=== PATIENT | female | born 1935 | race Caucasian/White ===

== ENCOUNTER 2017-01-12 20:07 | Inpatient (IN) | payer OTHER, MEDICARE ==
[~2017-01-12] VITALS: Ht 157.5 cm; Wt 67.1 kg
--- NOTE | 2017-01-12 20:28 | NUR ---
RECEIVED 81 YO FEMALE WITH SON REPORTS WORSENING CONFUSION X FEW DAYS. PT REPORTS BILATERAL LOWER EXTREMITY SWELLING AND FEELING OFF CENTER.
[2017-01-12] MEDS ORDERED: ATORVASTATIN CA20 M1 PO (20:32)
[2017-01-12] MEDS ORDERED: CARVEDILOL6.25 M1 PO (20:32)
[2017-01-12] MEDS ORDERED: AMLODIPINE BESYL5 M1 PO (20:33)
[2017-01-12] MEDS ORDERED: LOSARTAN POTASS50 M1 PO (20:34)
[2017-01-12] MEDS ORDERED: ASPIRIN EC81 M1 PO (20:35)
--- NOTE | 2017-01-12 20:38 | NUR ---
PT CHANGED INTO HOSPITAL GOWN. STATES HAS OCCASIONAL "ISSUES WITH INCONTINANCE" PT STATES SHE HAS BEEN ON HER FEET MORE THAN USUAL THE LAST FEW DAYS AND IS WONDERING IF THAT WORSENED THE ANKLE/FEET SWELLING. IS ALERT AND CONVERSIVE. C/O FATIGUE. DENIES SOB/CHEST PAIN DR LUNDY AT BEDSIDE TO EVAL PT.
--- NOTE | 2017-01-12 20:53 | NUR ---
REGULAR HR ON AUSCULTAION. LUNGS SOUNDS CLEAR. PT STATES URINARY FREQUENCY IS AT BASELINE. PT ALERT AND CONVERSIVE, AND ORIENTED
--- NOTE | 2017-01-12 20:57 | ED AMS/SEIZURE/WEAK/DIZZY ---
History of Present Illness General Chief Complaint: General Adult Stated Complaint: ALERT MENTAL STATUS PER FAMILY AND BACK PAIN Source: patient, SON Exam Limitations: no limitations Vital Signs & Intake/Output Vital Signs & Intake/Output Vital Signs Date Time Temp Pulse Resp B/P Pulse O2 O2 Flow FiO2 Ox Delivery Rate 01/13 0130 98.2 82 20 140/84 97 Room Air 01/13 0015 99.2 80 18 136/69 96 Room Air 01/121 96.8 75 18 139/74 96 Room Air 01/12 2025 97.8 75 20 126/76 97 Room Air ED Intake and Output 01/13 0000 01/12 1200 Intake Total 0 Output Total Balance 0 Intake, Oral 0 Patient 148 lb Weight Allergies Coded Allergies: Penicillins (RASH 01/12/17) Reconcile Medications Amlodipine Besylate 5 MG TABLET 0.5 TAB PO DAILY HEART/BP (Reported) Aspirin (Ecotrin*) 81 MG TABLET.DR 81 MG PO DAILY HEART/BLOOD (Reported) Atorvastatin Calcium 20 MG TABLET 1 TAB PO DAILY CHOLESTEROL (Reported) Carvedilol 6.25 MG TABLET 1 TAB PO BID HEART/BP (Reported) Losartan Potassium 50 MG TABLET 1 TAB PO DAILY HEART/BP (Reported) Triage Note: RECEIVED 81 YO FEMALE WITH SON REPORTS WORSENING CONFUSION X FEW DAYS. PT REPORTS BILATERAL LOWER EXTREMITY SWELLING AND FEELING OFF CENTER. Triage Nurses Notes Reviewed? yes HPI: Patient presents for evaluation of feeling lethargic and somewhat tired over the past few days. Patient states that she also had a rather sudden onset of bilateral leg swelling today. She is also complaining of right hip and flank pain is the result of trying to pull a heavy plastic storage box yesterday. The pain gets worse with movement and she states she has to walk stooped over due to the pain. Her son states that she doesn't seem to be acting her usual self stating that the FBI is trying to break into her home. He also states she called the police today about stolen silverware (a silverware is in its usual place however. Patient denies any associated fever, cold symptoms, chest pain, dyspnea, abdominal pain, dysuria, vomiting or diarrhea. She does have chronic urinary frequency. Past History Travel History Traveled to [place] past 21 day No Medical History Any Pertinent Medical History? none Neurological: NONE EENT: NONE Cardiovascular: hypertension, hyperlipidemia Respiratory: NONE Gastrointestinal: NONE Hepatic: NONE Renal: NONE Musculoskeletal: NONE Psychiatric: NONE Endocrine: NONE Blood Disorders: NONE Cancer(s): NONE Surgical History Surgical History: non-contributory Psychosocial History What is your primary language [place] Tobacco Use: Never used Family History Hx Contributory? No Review of Systems Review of Systems Constitutional: Reports: no symptoms. EENTM: Reports: no symptoms. Respiratory: Reports: no symptoms. Cardiovascular: Reports: no symptoms. GI: Reports: no symptoms. Genitourinary: Reports: no symptoms. Musculoskeletal: Reports: no symptoms. Skin: Reports: no symptoms. Neurological/Psychological: Reports: confusion. Hematologic/Endocrine: Reports: no symptoms. Immunologic/Allergic: Reports: no symptoms. All Other Systems: Reviewed and Negative Physical Exam Physical Exam General Appearance: SEE BELOW Comments: Gen.: Well-nourished, well-developed, no acute respiratory distress. Head: Normocephalic, atraumatic. Eyes: Normal inspection bilaterally Ears: Normal inspection bilaterally Nose: Normal inspection Throat/mouth : Moist mucosa Neck: Supple, full range of motion, no goiter Heart: Regular rate and rhythm, no murmurs rubs or gallops Lungs: Clear to auscultation bilaterally with normal air entry Chest: Nontender Back: Normal range of motion, nontender, patient has right flank tenderness with range of motion however Abdomen: Soft, nontender, nondistended, normal bowel sounds Extremities: Normal range of motion grossly, equal radial pulses, bilateral 1-2+ pitting lower extremity edema, calves nontender no signs of cellulitis Neurologic: Cranial nerves grossly intact, speech is clear Skin: warm and dry Psychiatric: Calm, cooperative, no apparent delusions or hallucinations Core Measures ACS in differential dx? No CVA/TIA Diagnosis: No Severe Sepsis Present: No Septic Shock Present: No Progress Differential Diagnosis: ALTERED MENTAL STATUS: oCCULT INFECTION, cva, PSYCHIATRIC DISORDER bACK PAIN: mUSCLE STRAIN, RENAL COLIC, SHINGLES lEG EDEMA: rIGHT-SIDED HEART FAILURE, EXCESSIVE SALT INTAKE, VENOUS DISEASE Plan of Care: Orders Procedure Date/time Status Heart Healthy Diet 01/13 B Active SODIUM 01/13 1200 Active THYROID STIMULATING HORMONE 01/13 0600 Active HEPATIC FUNCTION PANEL 01/13 06 Active FREE T4 01/13 0600 Active CORTISOL AM 01/13 06 Active BASIC ELECTROLYTES PLUS BUN&CR 01/13 06 Active Pathway - chart 01/13 0355 Active Pathway - chart 01/13 0350 Active House Staff 01/13 0350 Active Vital Signs 01/13 0236 Active Teach/Educate 01/13 023 Active Pain Treatment and Response 01/14 236 Active Nutritional Intake, Monitor 01/14 236 Active Isolation 01/13 023 Active Intake & Output 01/13 023 Active Patient Care Conference 01/13 023 Active Activity/Ambulation 01/13 023 Active Patient Data 01/13 0020 Active Lab Add-on Test 01/13 UNK Active ECHOCARDIOGRAM 01/13 UNK Active Misc Message 01/12 233 Active ED Holding Orders 01/13 2336 Active Admit to inpatient 01/13 2336 Active Vital Signs 01/13 2336 Active Code Status 01/13 2336 Active Add-on Test (ER Only) 01/12 2333 Active URINE OSMOLALITY 01/13 2148 Complete URINE LYTES, SPOT 01/13 2148 Complete VIT D 25 HYDROXY 01/12 2135 Active SERUM OSMOLALITY 01/12 2135 Active FOLIC ACID 01/12 2135 Active B-TYPE NATRIURETIC PEP (BNP) 01/12 2135 Active VITAMIN B12 01/12 2135 Active Saline Lock 01/12 2057 Active CULTURE,URINE 01/12 2057 Active URINE DRUG SCREEN FOR ER ONLY 01/12 2057 Complete URINALYSIS 01/12 2057 Complete THYROID STIMULATING HORMONE 01/12 2057 Active TROPONIN LEVEL 01/12 2057 Active T3 UPTAKE (THYROXINE BIND CAP) 01/12 2057 Active THYROXINE 01/12 2057 Active ETHANOL 01/12 2057 Active COMPREHENSIVE METABOLIC PANEL 01/12 2057 Active CBC WITHOUT DIFFERENTIAL 01/12 2057 Complete EKG 01/12 2057 Active Intake & Output 01/13 2040 Active Current Medications Sig/Sivakumar Start time Last Medication Dose Stop Time Status Admin Atorvastatin Calcium 20 MG 1700 01/13 1700 AC (Lipitor) Amlodipine Besylate 2.5 MG DAILY 01/13 1000 AC (Norvasc) Aspirin Buffered 81 MG DAILY 01/13 1000 AC (Ecotrin) Carvedilol 6.25 MG BID 01/13 1000 AC (Coreg) Enoxaparin Sodium 40 MG DAILY 01/13 1000 AC (Lovenox) Losartan Potassium 50 MG DAILY 01/13 1000 CAN (Cozaar) Acetaminophen 325 MG Q6P PRN 01/13 0400 AC (Tylenol) Acetaminophen/ 1 TAB Q6P PRN 04/01 0400 AC Hydrocodone Bitart (Vicodin) Tramadol HCl 25 MG Q6 PRN 01/14 400 AC (Ultram) Laboratory Tests 01/12/172147: Urine Color YEL, Urine Clarity CLEAR, Urine pH 6.0, Ur Specific [place] 1.015, Urine Protein NEG, Urine Ketones 15 H, Urine Nitrite NEG, Urine Bilirubin NEG, Urine Urobilinogen 0.2, Ur Leukocyte Esterase TRACE H, Ur Microscopic SEDIMENT EXAMINED, Urine WBC RARE, Ur Epithelial Cells FEW, Urine Bacteria RARE H, Urine Hemoglobin NEG, Urine Glucose NEG 01/12/172147: Urine Opiates Screen < 100.00, Methadone Screen < 40, Barbiturate Screen < 60, Ur Phencyclidine Scrn < 6.00, Amphetamines Screen < 100, U Benzodiazepines Scrn < 85, Urine Cocaine Screen < 50, Urine Cannabis Screen < 5.00, Urine Osmolality 636, Ur Random Creatinine 111.7, Ur Random Sodium 11 L, Ur Random Potassium 70.5, Fraction Sodium Excret 0.0 01/12/172134: Anion Gap 4 L, Estimated GFR > 60, BUN/Creatinine Ratio 30.0 H, Glucose 103 H , Serum Osmolality 276 L, Calcium 9.4, Total Bilirubin 0.7, AST 86 H, ALT 60 H, Alkaline Phosphatase 82, Troponin I < 0.01, Xgl-S-Rlxcbldsdpn Pept 164 H, Total Protein 6.2 L, Albumin 3.5, Globulin 2.7, Albumin/Globulin Ratio 1.3, Vitamin B12 703, 25-OH Vitamin D Total Pending, Folate > 20.0 H, TSH 2.980, Thyroxine (T4) 10.3, Thyroxine Binding Indx 42.0 H, CBC w Diff NO MAN DIFF REQ, RBC 4.73, MCV 84.5, MCH 28.1, RDW 13.3, MPV 8.4, Gran % 71.5, Lymphocytes % 18.6 L, Monocytes % 8.3, Eosinophils % 1.4, Basophils % 0.2, Absolute Granulocytes 7.1 H, Absolute Lymphocytes 1.9, Absolute Monocytes 0.8 H, Absolute Eosinophils 0.1, Absolute Basophils 0, PUBS MCHC 33.3, Serum Alcohol < 10.0 Microbiology 01/13 2148 URINE ROUT: Urine Culture - RECD Diagnostic Imaging: Discussed w/RAD: CT Scan. Radiology Impression: PATIENT: ZEESHAN GANDHI PRESENT AGE: 81 PATIENT ACCOUNT NO: [id number] : 34 LOCATION: [facility] ORDERING PHYSICIAN: NEVILLE LUNDY MD SERVICE DATE: 01/12/17 EXAM TYPE: CAT - CT HEAD WO IV CONTRAST EXAMINATION: CT HEAD WITHOUT CONTRAST CLINICAL INFORMATION: Altered mental status CVA COMPARISON: None TECHNIQUE: Contiguous axial imaging was performed from the skull base to vertex without intravenous administration of contrast. DLP: 529 mGy-cm FINDINGS: There is no evidence of acute intracranial hemorrhage or territorial infarction. No abnormal mass effect or midline shift is seen. Dempsey to white matter differentiation is well preserved. No extra-axial fluid collections are identified. The ventricles are normal in size. . There is prominent local extra-axial fluid in the left high parietal region likely related to normal variation without clinical significance. There is mild periventricular white matter changes compatible with small vessel disease. The osseous structures and soft tissues are normal. The mastoid air cells and visualized portions of the paranasal sinuses are well aerated. IMPRESSION: No acute intracranial pathology. No evidence for acute infarct. Chronic periventricular small vessel disease. DICTATED BY: LEEANNE PAINTER MD DATE/TIME DICTATED:01/12/172120 INSTRUMENT MAINTENANCE SUPERVISOR:RONEL DATE/TIME TRANSCRIBED:01/12/172120 CONFIDENTIAL, DO NOT COPY WITHOUT APPROPRIATE AUTHORIZATION. <Electronically signed in Other Vendor System> SIGNED BY: LEEANNE PAINTER MD 01/12/172132 CXR Impression: PATIENT: ZEESHAN GANDHI PRESENT AGE: 81 PATIENT ACCOUNT NO: [id number] : 34 LOCATION: [facility] ORDERING PHYSICIAN: NEVILLE LUNDY MD SERVICE DATE: 01/12/17 EXAM TYPE: RAD - XRY-PORTABLE CHEST XRAY EXAMINATION: CHEST 1 VIEW CLINICAL INFORMATION: Altered mental status. Swelling. COMPARISON: None. TECHNIQUE: An AP view of the chest is provided. FINDINGS: The cardiac silhouette is not enlarged. The mediastinal and hilar contours are unremarkable. There are neither pleural effusions nor pneumothoraces. There are no consolidations. The osseous structures are unremarkable. IMPRESSION: No evidence for acute disease. DICTATED BY: LEEANNE BARRIOS MD DATE/TIME DICTATED:01/12/172128 INSTRUMENT MAINTENANCE SUPERVISOR:RONEL DATE/TIME TRANSCRIBED:01/12/172128 CONFIDENTIAL, DO NOT COPY WITHOUT APPROPRIATE AUTHORIZATION. <Electronically signed in Other Vendor System> SIGNED BY: LEEANNE BARRIOS MD 01/12/172132 Initial ED EKG: NSR, rate (72), J point elevation in v2. poor r wave progression. Prior EKG: unchanged (no sig changes) Departure Departure Disposition: STILL A PATIENT Condition: Stable Clinical Impression Primary Impression: Hyponatremia Secondary Impressions: Altered mental status Qualifiers: Altered mental status type: unspecified Qualified Code: R41.82 - Altered mental status, unspecified Ketonuria Referrals: DAMEON GARCIA,SHIRA Aviles (PCP/Family) Departure Forms: Customer Survey General Discharge Information Admission Note Spoke With: SHILPA MOELLER MD Documentation of Exam: Documentation of any treatments & extenuating circumstances including Concerns Regarding Discharge (functional status, medication knowledge or non-compliance, living conditions, etc.) that warrant an admission rather than observation: Patient is currently experiencing altered mental status and the presence of hyponatremia and ketonuria. According to the family the patient has been experiencing paranoid delusions. I do not feel she is a good candidate for outpatient management of her hyponatremia and ketonuria under the circumstances. She lives alone I would have no assistance with ADLs. Also given her paranoid delusions I feel it is unlikely she would comply with outpatient treatment. She would likely return in worse clinical condition. Her hyponatremia places her at risk of tremors, weakness, seizures and altered mental status. She now requires treatment with normal saline and close monitoring of sodium level. Investigation into the reason for her hyponatremia should also be performed. Neurology and psychiatry consultations should be considered given her altered mental status and history of paranoid delusions. Given her age and medical comorbidities I feel her treatment and recovery will be somewhat prolonged and potentially complicated. I feel she will require a multiple day hospitalization.
--- NOTE | 2017-01-12 21:09 | NUR ---
PER SON, PT HAS BEEN EXPERIENCING EPISODES OF PARANOIA FOR THE LAST FEW DAYS. "SOMEBODY IS COMING INTO THE HOUSE AND STEALING MY SILVER" "THE FBI IS TAPPING MY PHONE" PT TORE PHONE OFF WALL. WAS AGREEABLE TO COME TO ED WITH SON TO GET CHECKED OUT, ON WAY TO ED SAID "WHAT IF THE FBI GOES INTO THE HOUSE WHILE I'M AT THE HOSPITAL" DR LUNDY MADE AWARE
--- NOTE | 2017-01-12 21:33 | CT SCAN REPORT ---
EXAMINATION: CT HEAD WITHOUT CONTRAST CLINICAL INFORMATION: Altered mental status CVA COMPARISON: None TECHNIQUE: Contiguous axial imaging was performed from the skull base to vertex without intravenous administration of contrast. DLP: 529 mGy-cm FINDINGS: There is no evidence of acute intracranial hemorrhage or territorial infarction. No abnormal mass effect or midline shift is seen. Dempsey to white matter differentiation is well preserved. No extra-axial fluid collections are identified. The ventricles are normal in size. . There is prominent local extra-axial fluid in the left high parietal region likely related to normal variation without clinical significance. There is mild periventricular white matter changes compatible with small vessel disease. The osseous structures and soft tissues are normal. The mastoid air cells and visualized portions of the paranasal sinuses are well aerated. IMPRESSION: No acute intracranial pathology. No evidence for acute infarct. Chronic periventricular small vessel disease.
--- NOTE | 2017-01-12 21:33 | RADIOLOGY REPORT ---
EXAMINATION: CHEST 1 VIEW CLINICAL INFORMATION: Altered mental status. Swelling. COMPARISON: None. TECHNIQUE: An AP view of the chest is provided. FINDINGS: The cardiac silhouette is not enlarged. The mediastinal and hilar contours are unremarkable. There are neither pleural effusions nor pneumothoraces. There are no consolidations. The osseous structures are unremarkable. IMPRESSION: No evidence for acute disease.
--- NOTE | 2017-01-12 21:41 | NUR ---
LABS SENT (BLUE,SST,LAV,MANCUSO)
[2017-01-12 21:44] LABS: ABSOLUTE BASOPHIL COUNT 0 /CUMM (0.0-0.2); ABSOLUTE EOSINOPHIL COUNT 0.1 /CUMM (0.0-0.7); ABSOLUTE GRANULOCYTE CT 7.1 /CUMM (1.4-6.5); ABSOLUTE LYMPH COUNT 1.9 /CUMM (1.2-3.4); ABSOLUTE MONOCYTE COUNT 0.8 /CUMM (0.10-0.60); BASOPHIL % 0.2 % (0.0-2.0); EOSINOPHIL % 1.4 % (0-5); GRANULOCYTE % 71.5 % (42.2-75.2); HEMATOCRIT 39.9 % (37-47); MEAN CORPUSCULAR HGB 28.1 PG (27.0-31.0); MEAN CORPUSCULAR HGB CONC 33.3 G/DL (33.0-37.0); MEAN CORPUSCULAR VOLUME 84.5 FL (81.0-99.0); MEAN PLATELET VOLUME 8.4 FL (7.4-10.4); PLATELET COUNT 229 /CUMM (130-400); RBC DISTRIBUTION WIDTH 13.3 % (11.5-14.5); RED BLOOD CELL CT 4.73 /CUMM (4.20-5.40)
--- NOTE | 2017-01-12 21:50 | NUR ---
3 TUBES URINE SENT TOLAB
--- NOTE | 2017-01-12 22:32 | NUR ---
PT SLEEPING, AROUSED DURING VITALS. PT NIFORMED OF WAIT FOR BLOOD TEST RESULTS
--- NOTE | 2017-01-12 23:29 | NUR ---
ASSUMED CARE OF PT, PER DR LUNDY PLAN FOR ADMISSION. PT SLEEPING COMFORTABLY AT THIS TIME, IVF UP PER ORDER.
--- NOTE | 2017-01-13 00:15 | NUR ---
PT REMAINS ASLEEP, AROUSABLE WITH VITALS, NO COMPLAINTS. AWAITING ADMISSION. IVF INFUSING.
--- NOTE | 2017-01-13 00:37 | NUR ---
DR GILBERT AT BEDSIDE FOR EVAL
--- NOTE | 2017-01-13 00:39 | History & Physical ---
SAFIA GARCIA,[facility] [place] 01/13/[place] 0038: General Information and HPI MD Statement: I have seen and personally examined ZEESHAN MARISCAL and documented this H&P. The patient is a 81 year old F who presented with a patient stated chief complaint of confusion. Source of Information: patient, family, old records Exam Limitations: no limitations History of Present Illness: Ms. Mariscal is a 81 y/o F with PMHx of HTN, HLD and osteoporosis who presents with confusion of several days duration. History is obtained from patient and his son who works as the chief of security here at [employer]. Patient reports that for the past few days leading up to current presentation, she has been feeling confused and tired. She reports that she is having a "personal crisis" whose details she does not feel comfortable divulging. She lives alone and has been finding it difficult to take care of herself during this time but her children have been very supportive. According to her son, patient has been acting strange recently, endorsing the belief that FBI is trying to break into her house. She called the police on the day of current presentation claiming that her neighbor stole her silverware, which was found to be in its usual place upon their arrival. Review of systems is negative except for nocturia, but no polyuria or dysuria, and recent leg swelling. Patient reports that she drinks about 1 L of water per day and eats primarily a tea and toast diet that is low in salt. Allergies/Medications Allergies: Coded Allergies: Penicillins (RASH 01/12/17) Past History Travel History Traveled to [place] past 21 day No Medical History Neurological: NONE EENT: NONE Cardiovascular: hypertension, hyperlipidemia Respiratory: NONE Gastrointestinal: NONE Hepatic: NONE Renal: NONE Musculoskeletal: osteoarthritis Psychiatric: NONE Endocrine: NONE Blood Disorders: NONE Cancer(s): NONE Other Medical Hx: left breast atypia Surgical History Surgical History: none Past Family/Social History Family History Relations & Conditions if any FATHER FH: bladder cancer MOTHER FH: heart disease Psychosocial History Where do you live? Home Who Do You Live With? self Services at Home: None Primary Language: Egyptian Smoking Status: Never Smoked ETOH Use: denies use Illicit Drug Use: denies illicit drug use Living Will? yes Functional Ability ADLs Independent: dressing, eating, toileting, bathing. Ambulation: independent IADLs Independent: shopping, housework, finances, food prep, telephone, transportation , medication admin. Employment History Employment Retired Profession/Employer [employer] Review of Systems Review of Systems Constitutional: Denies: chills, fever. EENTM: Reports: no symptoms. Cardiovascular: Reports: peripheral edema. Denies: chest pain, palpitations. Respiratory: Denies: short of breath. GI: Denies: abdominal pain, constipation, diarrhea, nausea, vomiting. Genitourinary: Reports: nocturia. Denies: dysuria. Musculoskeletal: Reports: no symptoms. Skin: Denies: lumps, rash. Neurological/Psychological: Reports: confusion. Hematologic/Endocrine: Denies: polyuria. Immunologic/Allergic: Reports: no symptoms. All Other Systems: Reviewed and Negative Exam & Diagnostic Data Last 24 Hrs of Vital Signs/I&O Vital Signs Date Time Temp Pulse Resp B/P Pulse O2 O2 Flow FiO2 Ox Delivery Rate 01/13 0130 98.2 82 20 140/84 97 Room Air 01/13 0015 99.2 80 18 136/69 96 Room Air 01/12 2231 96.8 75 18 139/74 96 Room Air 01/12 2025 97.8 75 20 126/76 97 Room Air Intake & Output 01/13 0800 01/13 0000 01/12 1600 Intake Total 0 Output Total Balance 0 Intake, Oral 0 Patient 67.132 kg Weight Physical Exam General Appearance Alert, Oriented X3, Cooperative, No Acute Distress, Answers Questions Appropriately but Slow to Respond Skin No Rashes HEENT Atraumatic, PERRLA, Mucous Membr. moist/pink Neck Supple, No JVD Cardiovascular Regular Rate Lungs Clear to Auscultation Abdomen Soft, No Tenderness, Positive Bowel Sounds Neurological No Gross Focal Deficits Noted Extremities No Clubbing, No Cyanosis, Bilateral Lower Extremities with 1+ Edema Last 24 Hrs of Labs/Mike: Laboratory Tests 01/12/172147: Urine Color YEL, Urine Clarity CLEAR, Urine pH 6.0, Ur Specific [place] 1.015, Urine Protein NEG, Urine Ketones 15 H, Urine Nitrite NEG, Urine Bilirubin NEG, Urine Urobilinogen 0.2, Ur Leukocyte Esterase TRACE H, Ur Microscopic SEDIMENT EXAMINED, Urine WBC RARE, Ur Epithelial Cells FEW, Urine Bacteria RARE H, Urine Hemoglobin NEG, Urine Glucose NEG 01/12/172147: Urine Opiates Screen < 100.00, Methadone Screen < 40, Barbiturate Screen < 60, Ur Phencyclidine Scrn < 6.00, Amphetamines Screen < 100, U Benzodiazepines Scrn < 85, Urine Cocaine Screen < 50, Urine Cannabis Screen < 5.00, Urine Osmolality 636, Ur Random Creatinine 111.7, Ur Random Sodium 11 L, Ur Random Potassium 70.5, Fraction Sodium Excret 0.0 01/12/175: Anion Gap 4 L, Estimated GFR > 60, BUN/Creatinine Ratio 30.0 H, Glucose 103 H , Serum Osmolality 276 L, Calcium 9.4, Total Bilirubin 0.7, AST 86 H, ALT 60 H, Alkaline Phosphatase 82, Troponin I < 0.01, Nqv-A-Yuplgdarceu Pept 164 H, Total Protein 6.2 L, Albumin 3.5, Globulin 2.7, Albumin/Globulin Ratio 1.3, Vitamin B12 Pending, 25-OH Vitamin D Total Pending, Folate Pending, TSH 2.980, Thyroxine (T4) 10.3, Thyroxine Binding Indx 42.0 H, CBC w Diff NO MAN DIFF REQ, RBC 4.73, MCV 84.5, MCH 28.1, RDW 13.3, MPV 8.4, Gran % 71.5, Lymphocytes % 18.6 L, Monocytes % 8.3, Eosinophils % 1.4, Basophils % 0.2, Absolute Granulocytes 7.1 H, Absolute Lymphocytes 1.9, Absolute Monocytes 0.8 H, Absolute Eosinophils 0.1, Absolute Basophils 0, PUBS MCHC 33.3, Serum Alcohol < 10.0 Microbiology 01/13 2148 URINE ROUT: Urine Culture - RECD Diagnostic Data EKG Results Sinus rhythm HR 72 QTc 430 CXR Results No evidence for acute disease. Other Results CT HEAD: No acute intracranial pathology. No evidence for acute infarct. Chronic periventricular small vessel disease. Assessment/Plan Assessment: 81 y/o F with PMHx of HTN, HLD and osteoporosis who presents with confusion and hyponatremia. #Hyponatremia: Hypotonic hyponatremia with serum osmolality of 276. Current presentation is most consistent with euvolemic hyponatremia. Although patient has 1+ pitting edema on bilateral lower extremities on exam, she has no other signs of volume overload including JVD or crackles. CXR is without evidence of volume overload as well. 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 TSH and T4 WNL on initial presentation. * Maintain patient on 1200 ml fluid restriction. * Monitor sodium Q6H. * Repeat T4 and TSH in the AM. * Check AM cortisol. * ECHO and proBNP ordered to evaluate for CHF given longstanding history of CHF. * Consider nephrology consult if sodium trends down further. * Alert patient's doctor Dr. Gamboa of her admission. #Confusion: Possibly secondary to hyponatremia but other potential etiologies that should be considered are dementia given CT Head with chronic microvascular changes and psychiatric illness including depression in view of paranoid delusions. * Consider psych consult especially if confusion does not resolve with correction of hyponatremia. * Check vitamin B12, folate and vitamin D. #HTN: * Continue home amlodipine 2.5 mg PO daily and carvedilol 6.25 mg PO BID. * Hold prior to admission losartan as it could lead to exacerbation of hyponatremia. Diet: Heart Healthy DVT PPx: Lovenox and ALPs CODE: FULL As Ranked By This Provider Problem List: 1. Hyponatremia 2. Confusion 3. HTN (hypertension) Core Measures/Miscellaneous Acute Coronary Syndrome ACS Diagnosis: No Cerebrovascular Accident CVA/TIA Diagnosis: No Congestive Heart Failure CHF Diagnosis: No Venous Thromboembolism VTE Risk Factors: Acute medical illness, Age > 40 No [facility] VTE prophylaxis d/t: No contraindications No VTE Pharm Prophylaxis d/t: No contraindications VTE Diagnosis: No VTE Type: NONE VTE Confirmed by (Test): NONE Severe Sepsis Severe Sepsis Present: No Septic Shock Septic Shock Present: No Miscellaneous Documentation Attending Case Discussed With: SHILPA MOELLER MD Primary Care Physician: SHIRA GAMBOA MD Patient sees these Specialists N/A Level of Patient Care: General Medicine [facility] ESPERANZA GARCIA 01/13/17 0357: General Information and HPI Allergies/Medications Home Med list Amlodipine Besylate 5 MG TABLET 0.5 TAB PO DAILY HEART/BP (Reported) Aspirin (Ecotrin*) 81 MG TABLET.DR 81 MG PO DAILY HEART/BLOOD (Reported) Atorvastatin Calcium 20 MG TABLET 1 TAB PO DAILY CHOLESTEROL (Reported) Carvedilol 6.25 MG TABLET 1 TAB PO BID HEART/BP (Reported) Losartan Potassium 50 MG TABLET 1 TAB PO DAILY HEART/BP (Reported) Resident Review Statement Resident Statement: examined this patient, discussed with business intern, agreed with business intern, discussed with family, reviewed EMR data (avail), discussed with nursing , reviewed images, amended to note Other Findings: 81 yo female with pmh of HTN, HLD, breast atypia (s/p biopsy 2007) was brought by her son due to worsening confusion and bilateral LE edema. Per her son, Mr. Ruiz Mariscal, she called [employer] police twice in the last 2 days. She claimed that someone was watching her from a car 1DA. Then she went to her neighbor's house today asking for help as there are people stealing her belongings. Police/ [employer]ulence came to her house, but she declined to go to ED at that time. Later, her son brought her to [place] ED for evaluation for confusion. Patient c/o fatigue for 4 days and she noted bilateral LE edema. She doesn't drink much ( about 1L fluid/d), and she eats low salt diet, usually processed food. She c/o nocturia (waking up 4 times/night). She denies dysuria or polyuria. She c/o chills, but she denied fever. She denies shortness of breath, chest pain, cough/ sputum. At baseline, she lives alone being independent. She still drives and walks independently. V/S: 98.2F CA 82 RR 20 BP 140/84 97% on RA, on exam she was alert, oriented x 3, decreased hearing, EOM intact, PERRLA, dry mouth, no JVD, regular rate, normal S1/S2, systolic murmurs, clear lungs, soft, non-tender abdomen, normal bowel sounds, LE mild pitting edema 1+, motor 5/5 moving all 4 extremities, cranial nerves grossly intact. Labs: CBC unremarkable, Na 127, K 3.9, BUN/Cr 18/0.6, Serum Osm 276, U Osm 636, U na 11, trop < 0.01, UA LE trace, nitrate negative, TSH/fT4 intact, elevated thyroxine binding indx EKG: NSR CT: No acute intracranial pathology. No evidence for acute infarct. Chronic periventricular small vessel disease. CXR: No evidence for acute disease. 1. Hypotonic hyponatremia: clinically pt is mildy fluid overloaded vs. euvolemic. She has poor diet. Differentials include heart failure, less likely SIADH. Will get echocardiogram, proBNP. Fluid restriction 1200ml /day. No diuretics for now. Will follow Na q6h. Repeat TSH/fT4, check cortisol am. Avoid rapid correction > 8mEq / 24 hrs. If Na is not improving, consider nephrology consult. 2. Altered mental status: No signs of infection, likely related with hyponatremia. Possible senile depression or dementia. Will check Vit b12/folate/ Vit D. 3. HTN: hold ARB with hyponatremia. Continue amlodipine, coreg. Follow echocardiogram. 4. HLD: c/w lipitor 5. Transaminitis: AST/ALT 86/69, bilirubin nl, asymptomatic, will follow up LFT in AM. DVT ppx: SC lovenox, full code, pain pathway. SAJAN,AARTEE 01/13/17 0413: Attending MD Review Statement Attending Statement Attending MD Statement: examined this patient, discuss w/resident/PA/CRACKING AND FANNING MACHINE OPERATOR, agreed w/resident/PA/CRACKING AND FANNING MACHINE OPERATOR, reviewed EMR data (avail), reviewed images, amended to note Attending Assessment/Plan: CC: Altered behavior, confusion PMH: HTN, HLD, breast lesion in the past Patient complains of some lethargy and tiredness last few days and increased leg swellings but not aware why she was brought in hospital states "personal crisis ". According to son patient called police department 2 times in the last 24 hours, once stating that there were some FBI of an outside her house, second time she went to her neighbor's house saying that somebody stealing stuff from her home. Patient lives alone and is independent. Patient denies any symptoms other than fatigue including vomiting, diarrhea, chest pain, abdominal pain, skin rashes, any new lumps. Vitals: Afebrile, otherwise unremarkable. On exam: A O 3, cooperative, slow to respond, no acute distress, neck supple, no JVD, no lymphadenopathy, mucosa moist, no focal neurological deficit, +1 pitting edema around ankles, no obvious skin rashes or inflammation CVS: S1-S2, RRR. RS: Clear to auscultate bilaterally. Abdomen: Soft, NT, ND, bowel sounds present. Labs: Sodium 127, BUN 18, creatinine 0.6, glucose 103, AST 86, ALT 60, serum osmolality 276, urine osmolality 636. CT head: No acute intracranial pathology. No evidence for acute infarct. Chronic periventricular small vessel disease. CXR: No acute distress A and P #1 hyponatremia: euvolemic > hypervolemic, patient does have +1 pitting edema in ankles but no JVD, no congestion on chest x-ray, ?SIADH according to serum and urine osmolality. In either situation volume restriction will help, continue to restrict volume up to 1200, hold losartan, check sodium every 6 hours, repeat TSH T3-T4, check serum cortisol in a.m. if sodium trending down then patient may benefit from nephro consult. Patient is known to Shira Gamboa MD inform him about patient being in hospital. #2 dilution and confusion : Sodium is not remarkably low but can definitely contribution to symptoms, reevaluated after sodium correction, check vitamin B- [address] scan does mention some microvascular changes ? Early signs of dementia, rule out depression. #3 pedal edema : Long-standing hypertension history, check proBNP, 2-D echo in a.m. #4 HTN: Continue amlodipine, Coreg, aspirin.
--- NOTE | 2017-01-13 01:03 | NUR ---
REPORT GIVEN TO KIARRA BATISTA
--- NOTE | 2017-01-13 01:07 | NUR ---
PER DR GILBERT, POC IS FLUID RESTRICTION 1200-1400CC/DAY TO RESOLVE HYPONATREMIA.
[2017-01-13 01:30] VITALS: BP 140/84
--- NOTE | 2017-01-13 04:15 | Admission Certification ---
Admission Certification Certification Statement - As attending physician, I certify that at the time of - admission, based on clinical presentation, severity of - symptoms, need for further diagnostic testing and - therapeutic interventions, and risk of adverse outcomes - without in-hospital treatment, in my clinical assessment, - this patient requires an acute hospital stay for a minimum - of two nights or longer. I have also considered psychsocial - factors such as support system, advanced age, financial - issues, cognitive issues, and failed out-patient treatments, - past re-admission history, safety of patient, and lack of - compliance as applicable. Specific rationale supporting this admission is: Hyponatremia
[2017-01-13 07:09] VITALS: BP 140/62
[2017-01-13 14:40] VITALS: BP 130/62
--- NOTE | 2017-01-13 15:11 | Cons- Psychiatry ---
Psychiatric Consult Date of Consult: 01/13/17 Reason for Consult: "paranoid status" History of Present Illness: Per Medicine H&P, 81 y/o F with PMHx of HTN, HLD and osteoporosis who presents with confusion of several days duration. History is obtained from patient and his son who works as the chief of security here at [place]. Patient reports that for the past few days leading up to current presentation, she has been feeling confused and tired. She reports that she is having a "personal crisis" whose details she does not feel comfortable divulging. She lives alone and has been finding it difficult to take care of herself during this time but her children have been very supportive. According to her son, patient has been acting strangely recent, endorsing the belief that FBI is trying to break into her house. She called the police on the day of current presentation claiming that her neighbor stole her silverware, which was found to be in its usual place upon their arrival. Review of systems is negative except for nocturia and recent leg swelling. On interview today, patient in room with her daughter. Pt spoke at length about money inappropriately being taken out of her account, a large tax bill, and ? someone breaking into her home. Pt thought she was in her usual state of fairly good health until a few days ago when was increasingly tired and "confused." She feels that thoughts were different but could not specify how. She did of the feeling that she was being watched. She was brought here by family given AMS. Pt denies depression, "I have a wonderful family," or manic sx. She does not that she feels like someone is monitoring her movements at home because the fiancial documents where distrubed but could not specify when that would have taken place. She denies AVHs. Pt spends days working out, delma, fitness, walking may miles, shopping, and caring for herself without difficulty. Denies SI or HI, active or passive, current or in the past. Collateral obtained from her daughter: Pt was fine until Sunday. She speaks with mother daily and noted that on Sunday, "she was fine, the same." On Sunday, pt seemed confused and was perseverating about these fiancial issues. She is unsure if these are real and is looking into them on Sunday when the jerez open. She has no concerns about cognitive impairment, memory loss or ability to care for self. Her mother is extremely independent. Allergies: Coded Allergies: Penicillins (RASH 01/12/17) Current Medications: Current Medications Sig/Sivakumar Start time Last Medication Dose Route Stop Time Status Admin Acetaminophen 325 MG Q6P PRN 01/13 0400 AC PO Acetaminophen/ 1 TAB Q6P PRN 01/13 0400 AC Hydrocodone Bitart PO Amlodipine Besylate 2.5 MG DAILY 01/13 1000 AC 01/13 PO 1128 Aspirin Buffered 81 MG DAILY 01/13 1000 AC 01/13 PO 1128 Atorvastatin Calcium 20 MG 1700 01/13 1700 AC PO Carvedilol 6.25 MG BID 01/13 1000 DC PO Carvedilol 6.25 MG BID 01/13 1000 AC 01/13 PO 1128 Enoxaparin Sodium 40 MG DAILY 01/13 1000 AC 01/13 SC 1129 Losartan Potassium 50 MG DAILY 01/13 1000 CAN PO Sodium Chloride 1,000 ML ONCE ONE 01/12 2330 DC 01/12 IV 01/13 0609 2329 Tramadol HCl 25 MG Q6 PRN 01/13 0400 AC PO Past History Past Medical History Neurological: NONE EENT: NONE Cardiovascular: hypertension, hyperlipidemia Respiratory: NONE Gastrointestinal: NONE Hepatic: NONE Renal: NONE Musculoskeletal: osteoarthritis Psychiatric: NONE Endocrine: NONE Blood Disorders: NONE Cancer(s): NONE Past Surgical History Surgical History: non-contributory Psychosocial History Strengths/Capabilities: strong family support, very social and active Physical Limitations (Interventions): None at this critical access hospital Psychiatric Treatment History Psych Treatment Psychiatric Treatment No Diagnosis: Denied, had some depression after of 40 years ago, did not seek tx , resolved with time. Risk Factors: age (under 24/over 65), lives alone Substance Use/Abuse History Drug Use/Abuse Substances Used/Abused No Substance Abuse Treatment Substance Abuse Treatment Past Substance Abuse [place] No Assessment/Plan Mental Status Orientation: Person, Place (Not to year, but to day/date) Affect: WNL Speech: Perseveration (around fiancial issues) Neuro-vegetative: Energy Decreased Mental Status Exam: Appears younger stated age. Cooperative behavior, good, appropriate eye contact. Nl speech rate and prosody. No psychomotor retardation or agitation. Mood "I'm OK" Affect concerned appropriately, appropriate, non-liable. Linear and goal directed thought process. Denies SI or HI. Does not appear to be responding to internal stimuli. + paranoia/+delusions around the fiancial matters and someone monitoring her movements, Denies AVHs. I/J: limited Lab Results: Laboratory Tests 01/13 01/12 01/12 0636 2148 2148 Chemistry Sodium (137 - 145 mmol/L) 130 L Potassium (3.5 - 5.1 mmol/L) 3.9 Chloride (98 - 107 mmol/L) 98 Carbon Dioxide (22 - 30 mmol/L) 27 Anion Gap (5 - 16) 5 BUN (7 - 17 mg/dL) 13 Creatinine (0.5 - 1.0 mg/dL) 0.6 Estimated GFR (>60 ml/min) > 60 BUN/Creatinine Ratio (7 - 25 %) 21.7 Total Bilirubin (0.2 - 1.3 mg/dL) 0.7 Direct Bilirubin (< 0.4 mg/dL) 0.2 AST (14 - 36 U/L) 79 H ALT (9 - 52 U/L) 56 H Alkaline Phosphatase (<127 U/L) 69 Total Protein (6.3 - 8.2 g/dL) 5.4 L Albumin (3.5 - 5.0 g/dL) 2.9 L TSH (0.270 - 4.200 uIU/mL) 2.450 Free T4 (0.85 - 1.93 ng/dL) 1.76 Cortisol AM Sample (4.46 - 22.7 ug/dL) 15.0 Toxicology Urine Opiates Screen (>2000 NG/ML) < 100.00 Methadone Screen (>300 NG/ML) < 40 Barbiturate Screen (>200 NG/ML) < 60 Ur Phencyclidine Scrn (>25 NG/ML) < 6.00 Amphetamines Screen (>1000 NG/ML) < 100 U Benzodiazepines Scrn (>200 NG/ML) < 85 Urine Cocaine Screen (>300 NG/ML) < 50 Urine Cannabis Screen (>50 NG/ML) < 5.00 Urines Urine Color (YEL,AMB,STR) YEL Urine Clarity (CLEAR) CLEAR Urine pH (5.0 - 8.0) 6.0 Ur Specific [place] (1.001 - 1.035) 1.015 Urine Protein (NEG,<30 MG/DL) NEG Urine Ketones (NEG) 15 H Urine Nitrite (NEG) NEG Urine Bilirubin (NEG) NEG Urine Urobilinogen (0.1 - 1.0 EU/dl) 0.2 Ur Leukocyte Esterase (NEG) TRACE H Ur Microscopic SEDIMENT EXAMINED Urine WBC (0 - 2 /HPF) RARE Ur Epithelial Cells (NONE,FEW) FEW Urine Bacteria (NEG/NONE) RARE H Urine Hemoglobin (NEG) NEG Urine Osmolality (300 - 1000 MOSM/KG) 636 Ur Random Creatinine (mg/dL) 111.7 Ur Random Sodium (30 - 90 mmol/L) 11 L Ur Random Potassium (mmol/L) 70.5 Fraction Sodium Excret (<1% %) 0.0 Urine Glucose (N MG/DL) NEG 01/12 2135 Chemistry Sodium (137 - 145 mmol/L) 127 L Potassium (3.5 - 5.1 mmol/L) 3.9 Chloride (98 - 107 mmol/L) 94 L Carbon Dioxide (22 - 30 mmol/L) 28 Anion Gap (5 - 16) 4 L BUN (7 - 17 mg/dL) 18 H Creatinine (0.5 - 1.0 mg/dL) 0.6 Estimated GFR (>60 ml/min) > 60 BUN/Creatinine Ratio (7 - 25 %) 30.0 H Glucose (65 - 99 mg/dL) 103 H Serum Osmolality (285 - 295 MOSM/KG) 276 L Calcium (8.4 - 10.2 mg/dL) 9.4 Total Bilirubin (0.2 - 1.3 mg/dL) 0.7 AST (14 - 36 U/L) 86 H ALT (9 - 52 U/L) 60 H Alkaline Phosphatase (<127 U/L) 82 Troponin I (< 0.11 ng/ml) < 0.01 [id number] Pept (<125 pg/mL) 164 H Total Protein (6.3 - 8.2 g/dL) 6.2 L Albumin (3.5 - 5.0 g/dL) 3.5 Globulin (1.9 - 4.2 gm/dL) 2.7 Albumin/Globulin Ratio (1.1 - 2.2 %) 1.3 Vitamin B12 (239 - 931 pg/mL) 703 25-OH Vitamin D Total (30 - 100 ng/ml) 27.0 L Folate (2.76 - 20.0 ng/mL) > 20.0 H TSH (0.270 - 4.200 uIU/mL) 2.980 Thyroxine (T4) (4.5 - 10.9 ug/dL) 10.3 Thyroxine Binding Indx (23.5 - 40.5 % UPTAKE) 42.0 H Hematology CBC w Diff NO MAN DIFF REQ WBC (4.8 - 10.8 /CUMM) 10.0 RBC (4.20 - 5.40 /CUMM) 4.73 Hgb (12.0 - 16.0 G/DL) 13.3 Hct (37 - 47 %) 39.9 MCV (81.0 - 99.0 FL) 84.5 MCH (27.0 - 31.0 PG) 28.1 RDW (11.5 - 14.5 %) 13.3 Plt Count (130 - 400 /CUMM) 229 MPV (7.4 - 10.4 FL) 8.4 Gran % (42.2 - 75.2 %) 71.5 Lymphocytes % (20.5 - 51.1 %) 18.6 L Monocytes % (1.7 - 9.3 %) 8.3 Eosinophils % (0 - 5 %) 1.4 Basophils % (0.0 - 2.0 %) 0.2 Absolute Granulocytes (1.4 - 6.5 /CUMM) 7.1 H Absolute Lymphocytes (1.2 - 3.4 /CUMM) 1.9 Absolute Monocytes (0.10 - 0.60 /CUMM) 0.8 H Absolute Eosinophils (0.0 - 0.7 /CUMM) 0.1 Absolute Basophils (0.0 - 0.2 /CUMM) 0 PUBS MCHC (33.0 - 37.0 G/DL) 33.3 Toxicology Serum Alcohol (<10 MG/DL) < 10.0 Diffential Diagnosis: Delirium r/o neurocognitive disorder with psychosis and behavioral distrubance Impression: Pt with no psych psychiatric hx and, from family report, very high level of independent function in terms of ADLS and IADLS, with acute sudden onset of AMS with paranoia. Pt's mental status seems improved from one day ago, though with continued paranoia and ?delusions around fiancial matters. However, given high level of function described by her son and daughter on interview today, less likely represents neurocognitive disorder with psychosis and behavioral distrubance and more likely represents delirium. Pt does not have waxing and waining mental status and can full interact though there seems to be some cogntive slowing and some orientation problems as pt was insistant that it was 1972, even when told several times it was 2017. Pts picture may represent a shift from hyperactive delirium to more hypoactive or subacute delirum. Nonetheless, at this time, she is not at baseline. It is likely as underlying medical problems improve, so will her mental status. Unfortunately, in older patients, delirium can take as much as 3-6 months to fully resolve though greatest improvement do occur in the first few days and weeks. Will closely monitor and obtain collateral from family. Provisional Treatment Plan: - Primary team to treat underlying medical issues - Psych to see on Sunday to assess for change in mental status or improvement in or resolution of delirium - If delirium persists, medication treatment is anti-psychotic; would recommend with starting low-dose seroquel at night, 12.5mg qhs. Pt is already fall risk, pt monitor closely for exessive sedation. Thank you for the consult.
--- NOTE | 2017-01-13 21:06 | PN- Att Addend ---
Attending Addendum Attending Brief Note Pt was seen and evaluated. Chart reviewed. Labs reveal hyponatriema, likely chronic as serum osmolality is low. LFT's elevated. check liver U/S and send urine lytes to r/o SIADH. Add Mag & Phos in am labs. Appreicate psych input
[2017-01-13 23:02] VITALS: BP 138/64
--- NOTE | 2017-01-14 10:30 | PN- Housestaff ---
Subjective Follow-up For: Hyponatremia, confusion Complaints: no complaints Subjective: Patient comfortable, not in distress, doesn't have any complaints, is not confused, vitals stable, no overnight issues. Review of Systems Constitutional: Reports: no symptoms. Cardiovascular: Reports: no symptoms. Respiratory: Reports: no symptoms. Gastrointestinal: Reports: no symptoms. Genitourinary: Reports: no symptoms. Neurological/Psychological: Reports: no symptoms. Objective Last 24 Hrs of Vital Signs/I&O Vital Signs Date Time Temp Pulse Resp B/P Pulse O2 O2 Flow FiO2 Ox Delivery Rate 01/14 1428 98.7 68 20 154/69 97 Room Air 01/14 1034 69 138/64 01/14 1033 69 138/64 01/13 2302 98.6 69 18 138/64 97 01/13 2148 69 138/64 Intake & Output 01/14 1600 01/14 0800 01/14 0000 Intake Total 490 110 260 Output Total 200 200 Balance 490 -90 60 Intake, IV 10 110 Intake, Oral 480 260 Output, Urine 200 200 Physical Exam General Appearance: Alert, Oriented X3, Cooperative, No Acute Distress, no confusion noted Other Physical Findings: Skin No Rashes HEENT Atraumatic, PERRLA, Mucous Membr. moist/pink Neck Supple, No JVD Cardiovascular Regular Rate Lungs Clear to Auscultation Abdomen Soft, No Tenderness, Positive Bowel Sounds Neurological No Gross Focal Deficits Noted Extremities No Clubbing, No Cyanosis, Bilateral Lower Extremities with 1+ Edema Current Medications: Current Medications Sig/Sivakumar Start time Last Medication Dose Route Stop Time Status Admin Acetaminophen 325 MG Q6P PRN 01/13 0400 AC PO Acetaminophen/ 1 TAB Q6P PRN 01/13 0400 AC Hydrocodone Bitart PO Amlodipine Besylate 2.5 MG DAILY 01/13 1000 AC 01/14 PO 1034 Aspirin Buffered 81 MG DAILY 01/13 1000 AC 01/14 PO 1033 Atorvastatin Calcium 20 MG 1700 01/13 1700 AC 01/14 PO 1810 Carvedilol 6.25 MG BID 01/13 1000 AC 01/14 PO 1033 Enoxaparin Sodium 40 MG DAILY 01/13 1000 AC 01/14 SC 1033 Tramadol HCl 25 MG Q6 PRN 01/13 0400 AC PO Last 24 Hrs of Lab/Mike Results Last 24 Hrs of Labs/Mics: Laboratory Tests 01/14/17 1200: Sodium Cancelled 01/14/17 0830: Anion Gap 3 L, Estimated GFR > 60, BUN/Creatinine Ratio 21.4, Phosphorus 2.9, Magnesium 1.8 Assessment/Plan Assessment: 81 y/o F with PMHx of HTN, HLD and osteoporosis who presents with confusion and hyponatremia. #Hyponatremia: Sodium today is 132. Hypotonic hyponatremia with serum osmolality of 276. Current presentation is most consistent with euvolemic hyponatremia. Although patient has 1+ pitting edema on bilateral lower extremities on exam, she has no other signs of volume overload including JVD or crackles. CXR is without evidence of volume overload as well. 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 TSH and T4 WNL on initial presentation. Morning cortisol is also normal. * Maintain patient on 1200 ml fluid restriction. * Monitor sodium daily only * ECHO and proBNP ordered to evaluate for CHF given longstanding history of CHF. * Will consider nephrology consult if sodium trends down further. * Phosphorus and magnesium were added later per attending, which was 2.9 and 1.8 respectively * Ultrasound of liver has been ordered for tomorrow as her liver function test is slightly deranged, and the patient has been ordered to be nothing by mouth from midnight accordingly. * Urine electrolytes have been ordered. Awaiting results #Confusion: Possibly secondary to hyponatremia but other potential etiologies that should be considered are dementia given CT Head with chronic microvascular changes and psychiatric illness including depression in view of paranoid delusions. * Consider psych consult especially if confusion does not resolve with correction of hyponatremia. * Checked vitamin B12, folate and vitamin D. Vitamin B12 supplemented, folate and vitamin D normal. #HTN: * Continue home amlodipine 2.5 mg PO daily and carvedilol 6.25 mg PO BID. * Hold prior to admission losartan as it could lead to exacerbation of hyponatremia. Diet: Heart Healthy DVT PPx: Lovenox and ALPs CODE: FULL CODE Problem List: 1. Hyponatremia Pain Ratin Pain Location: - Pain Goal: Remain pain free Pain Plan: prn Tomorrow's Labs & Rationales: BEP, Mg, phos to f/u on renal dysfunction
[2017-01-14 14:28] VITALS: BP 154/69
[2017-01-14 22:34] VITALS: BP 140/80
--- NOTE | 2017-01-15 01:52 | NUR ---
PATIENT CALLED ME INTO ROOM NOT UNDERSTANDING WHY SHE WAS NPO, ALTHOUGH IT WAS EXPLAINED TO HER AT CHANGE OF SHIFT. EXPLAINED WHY, PATIENT FOCUSED ON HAVING TO GO HOME BECAUSE HER "ACCOUNTS ARE HACKED" AND SHE'S THE ONLY ONE WHO CAN TAKE CARE OF IT. WAS DIFFICULT TO REDIRECT. OFFERED SOMETHING FOR SLEEP, REFUSED. DOESN'T FEEL THERE IS ANYTHING WRONG WITH HER. EXPLAINED HER LABS WERE OFF AND WE NEED TO FIGURE OUT WHY. CONTINUE TO MONITOR.
[2017-01-15 07:19] VITALS: BP 162/84
--- NOTE | 2017-01-15 07:33 | PN- Housestaff ---
JOSELINE GARCIA,NBA 01/15/17 0733: Subjective Follow-up For: Confusion Complaints: no complaints Subjective: Patient examined and followed up by me today, stable, no more confused, vitals have been stable, sodium improved, either to go home today, no overnight issues. Review of Systems Constitutional: Reports: no symptoms. Cardiovascular: Reports: no symptoms. Respiratory: Reports: no symptoms. Gastrointestinal: Reports: no symptoms. Genitourinary: Reports: no symptoms. Neurological/Psychological: Reports: no symptoms. Objective Last 24 Hrs of Vital Signs/I&O Vital Signs Date Time Temp Pulse Resp B/P Pulse O2 O2 Flow FiO2 Ox Delivery Rate 01/15 1433 98.1 66 20 156/80 98 Room Air 01/15 0900 78 128/80 01/15 0719 98.2 62 20 162/84 97 01/14 2234 97.4 63 18 140/80 98 01/14 2213 63 140/80 Intake & Output 01/15 1600 01/15 0800 01/15 0000 Intake Total 410 120 410 Output Total 1050 800 Balance 410 -930 -390 Intake, IV 10 Intake, Oral 400 120 410 Number 0 Bowel Movements Output, Urine 1050 800 Physical Exam General Appearance: Alert, Oriented X3, Cooperative, No Acute Distress, not confused Other Physical Findings: Other Physical Findings: Skin No Rashes HEENT Atraumatic, PERRLA, Mucous Membr. moist/pink Neck Supple, No JVD Cardiovascular Regular Rate Lungs Clear to Auscultation Abdomen Soft, No Tenderness, Positive Bowel Sounds Neurological No Gross Focal Deficits Noted Extremities No Clubbing, No Cyanosis, Bilateral Lower Extremities with 1+ Edema Current Medications: Current Medications Sig/Sivakumar Start time Last Medication Dose Route Stop Time Status Admin Acetaminophen 325 MG Q6P PRN 01/13 0400 AC PO Acetaminophen/ 1 TAB Q6P PRN 01/13 0400 AC Hydrocodone Bitart PO Amlodipine Besylate 2.5 MG DAILY 01/13 1000 AC 01/15 PO 0900 Aspirin Buffered 81 MG DAILY 01/13 1000 AC 01/15 PO 0900 Atorvastatin Calcium 20 MG 1700 01/13 1700 AC 01/15 PO 1647 Carvedilol 6.25 MG BID 01/13 1000 AC 01/15 PO 0900 Enoxaparin Sodium 40 MG DAILY 01/13 1000 AC 01/15 SC 0900 Patient Medication 1 ED .ST-MED ONE 01/15 1349 [facility] ED 01/15 1350 Tramadol HCl 25 MG Q6 PRN 01/13 0400 AC PO Last 24 Hrs of Lab/Mike Results Last 24 Hrs of Labs/Mics: Laboratory Tests 01/15/17 0640: Anion Gap 6, Estimated GFR > 60, BUN/Creatinine Ratio 28.0 H, Phosphorus 3.2, Magnesium 1.9 Assessment/Plan Assessment: 81 y/o F with PMHx of HTN, HLD and osteoporosis who presents with confusion and hyponatremia. #Hyponatremia: Sodium today is 132. Hypotonic hyponatremia with serum osmolality of 276. Current presentation is most consistent with euvolemic hyponatremia. Although patient has 1+ pitting edema on bilateral lower extremities on exam, she has no other signs of volume overload including JVD or crackles. CXR is without evidence of volume overload as well. 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 TSH and T4 WNL on initial presentation. Morning cortisol is also normal. * Maintain patient on 1200 ml fluid restriction. * Monitor sodium daily only * ECHO and proBNP ordered to evaluate for CHF given longstanding history of CHF. * Will consider nephrology consult if sodium trends down further. * Phosphorus and magnesium were added later per attending, which was 2.9 and 1.8 respectively * Ultrasound of liver showed 2 liver cysts, biliary sludge, no signs of hepatitis * Urine electrolytes have been ordered. Awaiting results #Confusion: Possibly secondary to hyponatremia but other potential etiologies that should be considered are dementia given CT Head with chronic microvascular changes and psychiatric illness including depression in view of paranoid delusions. * Consider psych consult especially if confusion does not resolve with correction of hyponatremia. * Psychiatric services suggested trazodone as needed, and follow-up as an outpatient. * Checked vitamin B12, folate and vitamin D. Vitamin B12 supplemented, folate and vitamin D normal. #HTN: * Continue home amlodipine 2.5 mg PO daily and carvedilol 6.25 mg PO BID. * Hold prior to admission losartan as it could lead to exacerbation of hyponatremia. Diet: Heart Healthy DVT PPx: Lovenox and ALPs CODE: FULL CODE Problem List: 1. Confusion Pain Ratin Pain Location: - Pain Goal: Pain 4 or less Pain Plan: prn Tomorrow's Labs & Rationales: SILVER ONOFRE MD,EMELIA 01/15/17 1422: Attending MD Review Statement Attending Statement Attending MD Statement: examined this patient, discuss w/resident/PA/WEB PRESS OPERATOR, agreed w/resident/PA/WEB PRESS OPERATOR, discussed with family, reviewed EMR data (avail), discussed with nursing, discussed with case mgmt, amended to note Attending Assessment/Plan: Patient seen and examined. Sitting up comfortably in her chair not in any distress. She is very pleasant. She is alert and oriented 3 and conversing appropriately. She expressed concerns about some tax documents that she thinks were misplaced of stolen at home. No issues overnight reported by nursing staff. She has been ambulating freely. She is very cooperative and not at all agitated. I spoke with both of the patient's daughters, who are very pleasant, today. They are both understandably very concerned about the patients being discharged home today. They are in agreement that the patient requires some supervision while she is at home however the sister she will be going home with has jury duty tomorrow and they have no other arrangements to make for the patient. Patient's daughter reports that last night the patient made 15 calls stating that people were breaking into her house and trying to steal her car. Both daughters are concerned that she is still experiencing psychotic behavior although patient has not experienced such behavior during the daytime here. They also uncertain of how she will respond to the trazodone that was recommended when necessary by the psychiatric service after they provided further information about patient's mental state. Problems: 1. Delirium; triggered by hyponatremia. Now resolved. 2. Rule out underlying cognitive disorder with psychosis and behavioral disturbance (probably dementia) 3. Poor sleep. 4. Abnormal LFTs Plan: -Patient probably has underlying cognitive disorder that was exacerbated by her hyponatremia. She is currently doing better although family reports she gets agitated and psychotic at night. -Psychiatric follow-up appreciated. Would recommend administering a dose of trazodone at bedtime tonight to help patient sleep as she has had poor sleep for several days. -Daughter is aware of the possibility of underlying cognitive disorder with psychosis and was inquiring about admission to a behavioral unit. Patient currently does not appear decompensated to the level of requiring such care. We will monitor her further overnight. -Her LFTs were mildly elevated on admission but are currently trending downwards. Appears to be less likely secondary to statin therapy as numbers are not markedly elevated. She is not on any other hepatotoxic medication although she does admit to use of Cp-Q10 and several different herbal teas. Sonogram shows hepatic cysts and possible stones versus polyps. -Repeat LFTs as an outpatient. Outpatient gastroenterology referral. Patient advised to avoid herbal medications. Continue statin therapy for now. This plan was discussed in detail with the patient's daughter Martine Whiting. She was very pleasant and is in agreement with this plan. -If patient has no significant psychotic behavior overnight as she tolerates trazodone she may be discharged home if the family is able to make appropriate arrangements for her. Her daughter and power of game breeding farm manager Martine Whiting is well aware of this plan.
--- NOTE | 2017-01-15 08:42 | Patient Discharge Instructions ---
Discharge Instructions General Discharge Information You were seen/treated for: Confusion/hyponatremia Special Instructions: Please check BEP and liver function test, viral hepatitis panel ON 01/19/2017 and copy the results to your primary care physician Dr. Gamboa. Please do not use Losartan at home. Monitor blood pressure daily for seven days and then follow-up with your PCP Dr Gamboa before restarting it. You need to restrict your daily fluid intake to 1200ml only for this week. Follow-up with gastroenterology service within 7-10 days of your discharge. Please visit your primary care physician within 7-10 days of discharge. Please follow-up with Psychiatry service if she does not improve with delusions/ mental health. Please return to emergency if symptoms worsen. Diet Continue normal diet: Yes Recommended Diet: Heart Healthy Activity Full Activity/No Limits: No Activity Self Limited: Yes Acute Coronary Syndrome Inclusion Criteria At DC or during hospital stay patient has or had the following: ACS DIAGNOSIS No Discharge Core Measures Meds if any: Prescribed or Continued at Discharge Meds if any: NOT Prescribed or Continued at Discharge Congestive Heart Failure Inclusion Criteria At DC or during hospital stay patient has or had the following: CHF DIAGNOSIS No Discharge Core Measures Meds if any: Prescribed or Continued at Discharge Meds if any: NOT Prescribed or Continued at Discharge Cerebrovascular accident Inclusion Criteria At DC or during hospital stay patient has or had the following: CVA/TIA Diagnosis No Discharge Core Measures Meds if any: Prescribed or Continued at Discharge Meds if any: NOT Prescribed or Continued at Discharge Venous thromboembolism Inclusion Criteria VTE Diagnosis No VTE Type NONE VTE Confirmed by (Test) NONE Discharge Core Measures - Per Current guidelines, there needs to be overlap - treatment for the first 5 days of Warfarin therapy. - If discharged on Warfarin prior to 5 days of - overlap therapy, the patient will need to be - assessed for post discharge needs including - *Post discharge parental anticoagulation - *Warfarin and/or parental anticoagulation education - *Follow up date to check INR post discharge At least 5 days overlap therapy as Inpatient No Meds if any: Prescribed or Continued at Discharge Note: Overlap Therapy is Warfarin and Anticoagulant Meds if any: NOT Prescribed or Continued at Discharge
--- NOTE | 2017-01-15 09:31 | PN- Psychiatry ---
See Addendum Assessment/Plan Impression: Identifying Info: 81-year-old female presents to [facility] emergency department on 01/12/2017 with chief complaint of altered mental status. Subsequently diagnosed hyponatremia and admitted to medicine. SUBJECTIVE "I think it's age, sometimes I forget things... I feel off center here (the hospital)." "Patient reports him being scammed, somewhat got a hold of my tax parenting information. It was in an envelope missing from a kitchen counter, I talked to my tax intern who looked at my documents and said you been scammed. " patient presents a non-bizarre plausible story regarding feeling someone has altered her tax documents in someway or stolen them which is leading to some financial harm. When asked for permission to speak to patient's children regarding this problem she would not adrian it. Discussed quality of sleep with patient who initially is resistant to medication but is agreeable to start a trial of melatonin here in the hospital. Brief ROS Gait: Ambulated with PT Sleep: Endorses poor sleep Appetite: NPO pending ultrasound OBJECTIVE Mental Status Exam Presentation/Appearance: Cooperative with evaluation. Hospital garb, lying in bed. Orientation: x4 Sensorium: Awake and alert Eye contact: Appropriate Affect: Fulll range congruent with stated mood Mood: Denies any mood disturbance Depression: Denies Anxiety: Denies but appears quite worried about financial situation Thought Content: - Denies SI/HI, AH/VH States and also believes they will not kill themselves. - Endorses previously reported fear she is being finacially scammed, however this is non-bizzare and my in fact represent an actual issue. She will not consent for getting collateral from family because they are busy making arrangements for her so at this point we cannot confirm or deny this belief. - Denies Hopeless/Helpless Thoughts Thought Process: Linear, goal directed Speech: Normal tone rate and prosody Judgment: Intact Insight: Inact Cognition: Memory: Short-term deficits endorsed Attention/Concentration: Grossly intact ASSESSMENT 81-year-old female presents with confusion in the context of hyponatremia and poor sleep for several days. She continues to endorse police that someone has altered her tax documents causing her financial harm. She is not currently experiencing waxing and waning mental status or any hallucinations that would be indicative of a floridly delusional process. It is possible that these beliefs may have some foundation and reality however this will need to be confirmed with family which we are unable to do at this time due to patient's reluctance to consent to this marketing copywriter gaining collateral information. It is equally as possible that these are the product of an acute confusional process. In general her mental status appears to have improved based on previous reports. Differential diagnosis Delirium likely due to hyponatremia and poor sleep, resolving r/o Unspecified neurocognitive disorder with psychosis and behavioral distrubance Suggestion: 1. Start melation 5mg qhs to improve sleep. 2. We will continue to encourage patient to allow us to gain collateral information so we can rule out delusion. 3. Please continue to avoid benzodiazepines, opioid analgesics, and meds with strong anticholinergic properties as much as possible to prevent further confusion. 4. Please initiate the following nonpharmacologic interventions: -Avoid nursing and medical procedures during sleep hours whenever possible - Cluster at night interventions that must be completed as much as possible to minimize sleep disruption - Decrease noise patient area during sleeping hours - Reduce lighting at night - Ensure patient has any sensory aids close by that she regularly uses Thank you for including psychiatry in this case, we will continue to follow. Subjective Subjective: . Objective Last 24 Hrs of Vital Signs/I&O Current Medications Sig/Sivakumar Start time Last Medication Dose Route Stop Time Status Admin Acetaminophen 325 MG Q6P PRN 01/13 0400 AC PO Acetaminophen/ 1 TAB Q6P PRN 01/13 0400 AC Hydrocodone Bitart PO Amlodipine Besylate 2.5 MG DAILY 01/13 1000 AC 01/15 PO 0900 Aspirin Buffered 81 MG DAILY 01/13 1000 AC 01/15 PO 0900 Atorvastatin Calcium 20 MG 1700 01/13 1700 AC 01/14 PO 1810 Carvedilol 6.25 MG BID 01/13 1000 AC 01/15 PO 0900 Enoxaparin Sodium 40 MG DAILY 01/13 1000 AC 01/15 SC 0900 Tramadol HCl 25 MG Q6 PRN 01/13 0400 AC PO Laboratory Tests 01/15/17 0640: Anion Gap 6, Estimated GFR > 60, BUN/Creatinine Ratio 28.0 H, Phosphorus 3.2, Magnesium 1.9 01/14/17 1200: Sodium Cancelled Vital Signs Date Time Temp Pulse Resp B/P Pulse O2 O2 Flow FiO2 Ox Delivery Rate 04/03 0900 78 128/80 04/03 0719 98.2 62 20 162/84 97 / 2234 97.4 63 18 140/80 98 04/02 2213 63 140/80 04/ 1428 98.7 68 20 154/69 97 Room Air 04/ 1034 69 138/64 04/ 1033 69 138/64 Intake & Output / 1600 04/ 0800 04/03 0000 Intake Total 120 410 Output Total 1050 800 Balance -930 -390 Intake, Oral 120 410 Output, Urine 1050 800
--- NOTE | 2017-01-15 09:43 | NUR ---
NURSING NOTE: PT LEFT FLOOR VIA STRETCHERT WITH DISTRIBUTION FOR ABD US. PT AWAKE, A/FORGETFUL, ROOM AIR, NPO, DENIES PAIN, AWAIT RETURN TO FLOOR.
--- NOTE | 2017-01-15 10:21 | NUR ---
NURSING NOTE: PT BACK TO FLOOR VIA STRETCHER FROM BRISEYDA US, PT NPO BUT 218 CALLED FOR DIET ORDERS. PT SITTING IN CHAIR, CHAIR ALARM IN USE. CONT TO MONITOR.
--- NOTE | 2017-01-15 11:35 | ULTRASOUND REPORT ---
EXAMINATION: US ABDOMEN LIMITED CLINICAL INFORMATION: Abnormal LFTs. Evaluate for liver and biliary pathology. COMPARISON: None TECHNIQUE: Real-time imaging of the right upper quadrant abdominal viscera. FINDINGS: PANCREAS: The pancreatic body and portions of the tail were visualized and appear unremarkable. Remainder of the pancreas is obscured by overlying bowel gas. LIVER: In the left lobe of the liver, a 2.7 x 2.1 x 2.7 cm thin-walled anechoic avascular cystic mass is seen with incomplete thin internal septation, consistent with a cyst. An additional small cyst is seen in the dome of the right lobe of the liver, measuring 1.6 x 1.1 x 1.5 cm. The liver demonstrates normal size, contour and echogenicity. No suspicious focal lesion or intrahepatic biliary duct dilatation. GALLBLADDER: There is a small 0.5 cm echogenic focus seen in the dependent portion of the gallbladder, possibly a adherent sludge ball versus less likely a small gallbladder wall polyp. The gallbladder is otherwise unremarkable with no stones, wall thickening or pericholecystic fluid noted. No sonographic Thompson sign is seen. COMMON BILE DUCT: Normal in caliber measuring 0.4 cm in diameter. RIGHT KIDNEY: Normal. No hydronephrosis. No renal calculi or focal parenchymal lesions. The kidney measures 9.9 cm in maximum dimension. FREE FLUID: None. IMPRESSION: 1. Two benign-appearing cysts is seen in the liver. Liver otherwise unremarkable. 2. Small echogenic noncalcified gallstone/sludge ball versus small polyp in the gallbladder. Gallbladder otherwise unremarkable. 3. Incomplete view of the pancreatic tail and head. Remainder of visualized pancreas unremarkable.
[2017-01-15] MEDS ORDERED: MELATONIN3 M4 PO (11:52)
[2017-01-15] MEDS ORDERED: TRAZODONE HCL50 M1 PO (11:59)
--- NOTE | 2017-01-15 12:45 | NUR ---
NURSING NOTE: PT CLEARED FOR DC TO [facility] PER ATTENDING/MEDICAL TEAM, PT AWAKE, A/FORGETFUL AT THIS TIME, RECEIVED CALL FROM SON STATING CONCERNS ABOUT SAFE DISCHARGE PLAN, SCREW MACHINE OPERATOR SINGLE SPINDLE SPEAKING WITH HIM, CONT TO MONITOR.
[2017-01-15 14:33] VITALS: BP 156/80
[2017-01-15 22:18] VITALS: BP 145/70
--- NOTE | 2017-01-16 03:38 | Event Note ---
Event Note Event Note: I was notified by the nurse that the patient was confused around 2:00 in the morning. According to the nurse, she is alert, awake but not oriented to time place and person. By the time I saw the patient she is confused and wandering in the corridor. She wants to walk in the corridor without any help. I explained to her that it is not safe as there are high chances of falling and hurting herself if she walks during midnight without any help. However she didn't agree. She is not agitated, not combative, not aggressive.. * One-to-one sitter was ordered.
[2017-01-16 06:12] VITALS: BP 140/80
--- NOTE | 2017-01-16 06:47 | PN- Housestaff ---
JOSELINE GARCIA,NBA 01/16/17 0647: Subjective Follow-up For: Confusion hyponatremia, resolved Subjective: According to the night staff and the patient herself, she was confused around 2 AM this morning, when she was suddenly kept on ALPS by staff for DVT prophylaxis. Also she started questioning whether she still needed to be in hospital or not and was wandering about the hallway. She was placed on 1:1 sitter by the night staff. Later this morning, she still had delusional episodes regarding FBI, financial issues, which family reconfirmed were false. Vitals have been stable overnight, no other issues otherwise. Review of Systems Constitutional: Reports: no symptoms. Cardiovascular: Reports: no symptoms. Respiratory: Reports: no symptoms. Gastrointestinal: Reports: no symptoms. Genitourinary: Reports: no symptoms. Neurological/Psychological: Reports: see HPI. Objective Last 24 Hrs of Vital Signs/I&O Vital Signs Date Time Temp Pulse Resp B/P Pulse O2 O2 Flow FiO2 Ox Delivery Rate 01/16 1414 98.5 84 18 148/80 96 Room Air 01/16 1023 68 142/78 01/16 1023 142/80 01/16 0612 97.2 72 18 140/80 98 Room Air 01/15 2218 97.1 60 20 145/70 93 01/15 2117 76 146/78 Intake & Output 01/16 1600 01/16 0800 01/16 0000 Intake Total 450 550 Output Total 600 Balance -150 550 Intake, IV 0 Intake, Oral 450 550 Number 1 Bowel Movements Output, Urine 600 Physical Exam General Appearance: Alert, Oriented X3, Cooperative, No Acute Distress Other Physical Findings: Skin No Rashes HEENT Atraumatic, PERRLA, Mucous Membr. moist/pink Neck Supple, No JVD Cardiovascular Regular Rate Lungs Clear to Auscultation Abdomen Soft, No Tenderness, Positive Bowel Sounds Neurological No Gross Focal Deficits Noted Extremities No Clubbing, No Cyanosis, Bilateral Lower Extremities with 1+ Edema Psych- normal assessment when examined by me this morning, no delusions noted by me; but psychiatric service was able to elicit delusions later Current Medications: Current Medications Sig/Sivakumar Start time Last Medication Dose Route Stop Time Status Admin Acetaminophen 325 MG Q6P PRN 01/13 0400 AC PO Acetaminophen/ 1 TAB Q6P PRN 01/13 0400 AC Hydrocodone Bitart PO Amlodipine Besylate 2.5 MG DAILY 01/13 1000 AC 01/16 PO 1023 Aspirin Buffered 81 MG DAILY 01/13 1000 AC 01/16 PO 1023 Atorvastatin Calcium 20 MG 1700 01/13 1700 AC 01/15 PO 1647 Carvedilol 6.25 MG BID 01/13 1000 AC 01/16 PO 1023 Enoxaparin Sodium 40 MG DAILY 01/13 1000 AC 01/16 SC 1023 Melatonin 5 MG AT BEDTIME 01/16 2200 AC PO Tramadol HCl 25 MG Q6 PRN 01/13 0400 AC PO Trazodone HCl 25 MG TID PRN 01/16 0930 AC 01/16 PO 1439 Trazodone HCl 25 MG .[TID PRN] PRN 01/16 0915 DC PO Last 24 Hrs of Lab/Mike Results Last 24 Hrs of Labs/Mics: Laboratory Tests 01/16/17 0625: Anion Gap 3 L, Estimated GFR > 60, BUN/Creatinine Ratio 34.3 H, Magnesium 1.9 Assessment/Plan Assessment: 81 y/o F with PMHx of HTN, HLD and osteoporosis who presents with confusion and hyponatremia. #Hyponatremia: Sodium today is 134. Euvolemic hyponatremia, now improved. 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 TSH and T4 WNL on initial presentation. Morning cortisol was also normal. * Maintain patient on 1200 ml fluid restriction. Patient seems to be doing better already with fluid restriction. * Monitor sodium daily * Ultrasound of liver showed 2 liver cysts, biliary sludge, no signs of hepatitis * Upon discharge, patient needs to continue her 1200 mL fluid restriction, gets basic electrolytes panel tested within a week in follow-up with her primary care physician Dr. Gamboa #Confusion: Possibly secondary to hyponatremia but other potential etiologies that should be considered are dementia given CT Head with chronic microvascular changes and psychiatric illness including depression in view of paranoid delusions. * Psychiatric services suggested trazodone as needed, and follow-up as an outpatient. Melatonin was also started according to psychiatric services. Psychiatry suggested to get minimal interruptions during sleeping hours, review orientations, and medications as mentioned. * Patient can be discharged with a follow-up at psychiatry outpatient if needed, and definitely with her primary care physician, [facility], gastroenterology services. All referrals have been answered to her/her daughter. * Checked vitamin B12, folate and vitamin D. Vitamin B12 supplemented, folate and vitamin D normal. #HTN: * Continue home amlodipine 2.5 mg PO daily and carvedilol 6.25 mg PO BID. * Hold prior to admission losartan as it could lead to exacerbation of hyponatremia. * She is to hold her losartan even at discharge, and check her blood pressure for a week before trying to restart her medications after consulting her primary care physician Dr. Gamboa #Patient needs a follow-up with gastroenterology services for slightly increased liver enzymes, viral hepatitis panel was ordered along with liver function tests as a follow-up. Diet: Heart Healthy DVT PPx: Lovenox and ALPs CODE: FULL CODE Problem List: 1. Confusion 2. Delusion 3. Transaminitis 4. HTN (hypertension) Pain Ratin Pain Location: - Pain Goal: Remain pain free Pain Plan: prn Tomorrow's Labs & Rationales: - EMELIA ONOFRE MD 01/16/17 1034: Attending MD Review Statement Attending Statement Attending MD Statement: examined this patient, discuss w/resident/PA/KENNEL ATTENDANT, agreed w/resident/PA/KENNEL ATTENDANT, reviewed EMR data (avail), discussed with nursing, discussed with case mgmt, amended to note Attending Assessment/Plan: Patient did well all through the day yesterday. She slept that night without need of any sedative medications however she was woken up according to nursing protocol and immediately became confused. She tried to get out of the bed unassisted resulting in a one-to-one sitter been ordered for safety. She was able to be redirected and did not require any chemical intervention. This morning she is a unilateral oriented 3. Conversing appropriately. She does admit clearly that she was confused last night when she was suddenly awoken from sleep. She apologized about the situation. Recommendations: -Recommend avoiding interruption of sleep at night unless critically required. This has been discussed with nursing staff. -Recommend melatonin at bedtime. The psychiatric service has recommended trazodone to be used as needed for agitation. -Patient is medically stable to be discharged home with supervision particularly at night. I have discussed with the psychiatric service. She does not require inpatient psychiatric admission or [facility] psych monitoring. -Currently awaiting family to determine if they have made appropriate arrangements for patient at home.
--- NOTE | 2017-01-16 08:19 | NUR ---
01/16/17 AT 0300 PATIENT BECAME CONFUSED AND KEPT ASKING THE SAME QUESTIONS TO WHY IS SHE IN THE HOSPITAL, WHY WAS SHE WOKEN UP AND WHY WASN'T SHE BEING DISCHARGED. THIS RN ATTEMPTED TO EXPLAIN TO THE PATIENT THE REASON SHE WAS WOKEN UP IS GIVE BED SIDE REPORT. THIS RN ATTEMTED TO RE-ORIENT THE PATIENT AND EXPLAIN THE REASON WHY SHE IS IN THE HOSPITAL AND WHY SHE HAS NOT BEEN DISCHARGED. THE PATIENT CONTINUED TO BE CONFUSED. MAGAZINE PUBLISHER TAYLOR Reagan WAS PAGED AND SAFETY MONITOR WAS PLACED.
--- NOTE | 2017-01-16 08:30 | Discharge Summary ---
Visit Information Visit Dates Admission Date: 01/12/17 Discharge Date: 01/16/17 Hospital Course Course Attending Physician: SHILPA MOELLER MD Primary Care Physician: SHIRA GAMBOA MD Hospital Course: Ms Mariscal is a pleasant 81 yo female with pmh of HTN, HLD, breast atypia (s/p biopsy 2007) was brought by her son due to worsening confusion, hallucinations and bilateral LE edema. At admission:V/S: 98.2F MA 82 RR 20 BP 140/84 97% on RA, on exam she was alert, oriented x 3, decreased hearing, EOM intact, PERRLA, dry mouth, no JVD, regular rate, normal S1/S2, systolic murmurs, clear lungs, soft, non-tender abdomen, normal bowel sounds, LE mild pitting edema 1+, motor 5/5 moving all 4 extremities, cranial nerves grossly intact. Labs: CBC unremarkable, Na 127, K 3.9, BUN/Cr 18/0.6, Serum Osm 276, U Osm 636, U na 11, trop < 0.01, UA LE trace, nitrate negative, TSH/fT4 intact, elevated thyroxine binding indx EKG: NSR CT: No acute intracranial pathology. No evidence for acute infarct. Chronic periventricular small vessel disease. CXR: No evidence for acute disease. Patient was treated in the hospital for: #Hyponatremia: The patient appeared to be mildly fluid overloaded at admission. 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 Serum osmolality of 276. Presentation is most consistent with euvolemic hyponatremia. 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 TSH and T4 was normal initial presentation. Morning cortisol is also normal. Her home medication losartan was stopped as it could cause hyponatremia. Patient was put on 1200 mL fluid restriction. Sodium was monitored daily. Phosphorus and magnesium were within normal limits. Patient's sodium slowly improved to 134 and a confusion also improved. Her family was concerned about her worsening cognitive disorder and her delusions. They were in agreement that the patient needs close monitoring after discharge. Her physical activities were clearly below her baseline. She did have some episodes of delirium on the floor and was recommended by PT to be sent to as STR, to which the family and the patient wanted her back home rather than to an STR, as her strength was coming back, though slowly. She still needs to be on 1200 mL restricted fluid intake diet, and get a repeat BEP within a week and follow-up with her primary care physician before changing her diet/salt status. She cannot go back to her home like before for now as she lives alone. Her daughter is here to take the patient to her (daughter's) home, where the patient will be for the days to come. # Confusion/agitation: Possibly secondary to hyponatremia. Patient was having multiple episodes of paranoid delusions on the floor. She expressed concerns about her tax documents and misplaced/ stolen items at home. She was also found to be calling her daughter more than ten times a night which was concerning for her faily as that was not normal of her to do so. The family expressed concerns regarding her psychotic behavior however patient did not have those episodes during the daytime. She was evaluated by psychiatry who started her on trazodone during nighttime. She had normal vitamin D and folate levels. Vitamin B12 level was low and was supplemented. Patient had no suicidal/ homicidal ideations in the hospital. She did explain concern about poor sleep and being woken up at night. Also suggested Trazodone 25mg as needed for agitation/aggression, and Melatonin for sleep, and to keep sleep disturbance at a minimum. She has been provided a referral for geriatric assessment center, and also told that she can follow-up with outpatient psychiatric if her symptoms worsen. #HTN: Continued home amlodipine 2.5 mg PO daily and carvedilol 6.25 mg PO BID. as that was stopped due to hyponatremia. Losartan was held here and also upon discharge, as her blood pressure was under control with rest of for 2 anti- hypertensive drugs. She is to measure her blood pressure daily for the next week in follow-up with her primary care physician to discuss about restarting losartan. #Of note, she needs to be followed up by the gastroenterology service for her mildly increased liver enzymes, and has been handed over a prescription to check for viral hepatitis panel. Diet: Heart Healthy DVT PPx: Lovenox and ALPS CODE: FULL CODE #HTN: Continued home amlodipine 2.5 mg PO daily and carvedilol 6.25 mg PO BID. as that was stopped due to hyponatremia. Losartan was held here and also upon discharge, as her blood pressure was under control with rest of for 2 anti- hypertensive drugs. She is to measure her blood pressure daily for the next week in follow-up with her primary care physician to discuss about restarting losartan. Diet: Heart Healthy DVT PPx: Lovenox and ALPS CODE: FULL CODE Allergies: Coded Allergies: Penicillins (RASH 01/12/17) Disposition Summary Disposition Principal Diagnosis: Hyponatremia Additional Diagnosis: Confusion, delirium Discharge Disposition: home or self care Discharge Instructions General Discharge Information Code Status: Full Code Patient's Diet: Regular Patient's Activity: as tolerated Follow-Up Instructions/Appts: Please check BEP and liver function test, viral hepatitis panel ON 01/19/2017 and copy the results to your primary care physician Dr. Gamboa. Please do not use Losartan at home. Monitor blood pressure daily for seven days and then follow-up with your PCP Dr Gamboa before restarting it. You need to restrict your daily fluid intake to 1200ml only for this week. Follow-up with gastroenterology service within 7-10 days of your discharge. Please visit your primary care physician within 7-10 days of discharge. Please fix an appointment with geriatric services as discussed before being discharged. A referral has been provided to you. Please follow-up with Psychiatry service if she does not improve with delusions/ mental health. Please return to emergency if symptoms worsen. Medications at Discharge Discharge Medications: Stop taking the following medications: Losartan Potassium (Losartan Potassium) 50 MG TABLET ORAL DAILY Qty = 30 Continue taking these medications: Atorvastatin Calcium (Atorvastatin Calcium) 20 MG TABLET 1 Tablet ORAL DAILY Qty = 90 Comments: Last Taken: 01/15/17 Time: 1800PM Carvedilol (Carvedilol) 6.25 MG TABLET 1 Tablet ORAL TWICE DAILY Qty = 180 Comments: Last Taken: 01/16/17 Time: 1000AM Amlodipine Besylate (Amlodipine Besylate) 5 MG TABLET 0.5 Tablet ORAL DAILY Qty = 45 Comments: Last Taken: 01/16/17 Time: 1000AM Aspirin (Ecotrin*) 81 MG TABLET. 81 Milligram ORAL DAILY Comments: Last Taken: 01/16/17 Time: 1000AM Start taking the following new medications: Melatonin (Melatonin) 3 MG TABLET 1 Tablet ORAL Every night Qty = 30 No Refills Comments: NOT GIVEN IN HOSPITAL Trazodone HCl (Trazodone HCl) 50 MG TABLET 0.5 Tablet ORAL Q8 PRN as needed for ANXIETY AND AGITATION Qty = 90 No Refills Comments: Last Taken: 01/16/17 Time: 1440PM Copies To: EMELIA ONOFRE M.D; LUBNA FOLEY APRN; DAMEON GARCIA,SHIRA Aviles Attending Review Statement Documenting Attending: EMELIA ONOFRE M.D Other Findings: I have reviewed the discharge summary.
--- NOTE | 2017-01-16 10:16 | PN- Psychiatry ---
Assessment/Plan Impression: Identifying Info: 81-year-old female presents to [facility] emergency department on 01/12/2017 with chief complaint of altered mental status. Subsequently diagnosed hyponatremia and admitted to medicine. At present the patient has midlevel provider. SUBJECTIVE "I'm fine thank you." Patient reports she recalls being awoken overnight by staff and feeling confused. "I just lose track here in the hospital." Brief ROS Gait: Ambulated with PT Sleep: Endorses poor sleep Appetite: Reports it is adequate OBJECTIVE Mental Status Exam Presentation/Appearance: Cooperative with evaluation. Hospital garb, lying in bed. Orientation: x4 Sensorium: Awake and alert Eye contact: Appropriate Affect: Fulll range congruent with stated mood Mood: "Wonderful" but does endorse some irritability related to continued hospitalization. Depression: Denies Anxiety: Denies Thought Content: - Denies SI/HI, AH/VH States and also believes they will not kill themselves. - Is able to to verbalize understanding that her daughter has checked her accounts and they are in good order. Seems reluctant to believe this but less convinced and in this belief since yesterday - Denies Hopeless/Helpless Thoughts Thought Process: Linear, logical Speech: Normal tone rate and prosody, articulate Judgment: Intact Insight: Inact Cognition: Memory: Short-term deficits endorsed Attention/Concentration: Grossly intact Per nursing report the patient was awoken overnight for nurse to nurse bedside report after which she was confused but redirectable and went back to bed. ASSESSMENT 81-year-old female presents with confusion in the context of hyponatremia, poor sleep for several days and unfamiliar environment. She is alert and oriented. No confusion this AM. There appears to be a temporal pattern to her confusion. This may be indicative of either the waxing and waining of a delirious process or an underlying neurocognitive disorder. She appears to be less convinced of her previous belief that her finances out of order post reinforcement of her daughter's report. In general her mental status appears to have improved based on previous reports. Differential diagnosis Delirium likely due to hyponatremia, poor sleep and environment, resolving r/o Unspecified neurocognitive disorder with psychosis and behavioral distrubance Suggestion: 1. Melation 5mg qhs to improve sleep. 2. Please start trazodone 25mg PO TID PRN for anxiety or aggitation. 3. Please refer to neurology on an outpatient basis for evaluation for neurocognitive disorder. 4. Please discontinue sitter unless the patient becomes confused again in which case initiate for safety. Monitor closely during night time hours. 5. Please continue to avoid benzodiazepines, opioid analgesics, and meds with strong anticholinergic properties as much as possible to prevent further confusion. 6. Please initiate the following nonpharmacologic interventions: -Avoid nursing and medical procedures during sleep hours whenever possible - Cluster at night interventions that must be completed as much as possible to minimize sleep disruption - Decrease noise patient area during sleeping hours - Reduce lighting at night - Ensure patient has any sensory aids close by that she regularly uses Thank you for including psychiatry in this case, we will continue to follow. Subjective Subjective: . Objective Last 24 Hrs of Vital Signs/I&O Current Medications Sig/Sivakumar Start time Last Medication Dose Route Stop Time Status Admin Acetaminophen 325 MG Q6P PRN 01/13 0400 AC PO Acetaminophen/ 1 TAB Q6P PRN 01/13 0400 AC Hydrocodone Bitart PO Amlodipine Besylate 2.5 MG DAILY 01/13 1000 AC 01/15 PO 0900 Aspirin Buffered 81 MG DAILY 01/13 1000 AC 01/15 PO 0900 Atorvastatin Calcium 20 MG 1700 01/13 1700 AC 01/15 PO 1647 Carvedilol 6.25 MG BID 01/13 1000 AC 01/15 PO 2117 Enoxaparin Sodium 40 MG DAILY 01/13 1000 AC 01/15 SC 0900 Melatonin 5 MG AT BEDTIME 01/16 2200 AC PO Patient Medication 1 ED .STK-MED ONE 01/15 1349 DC Teaching ED 01/15 1350 Tramadol HCl 25 MG Q6 PRN 01/13 0400 AC PO Trazodone HCl 25 MG TID PRN 01/16 0930 AC PO Trazodone HCl 25 MG .[TID PRN] PRN 01/16 0915 DC PO Laboratory Tests 01/16 0625 Chemistry Sodium (137 - 145 mmol/L) 134 L Potassium (3.5 - 5.1 mmol/L) 4.1 Chloride (98 - 107 mmol/L) 101 Carbon Dioxide (22 - 30 mmol/L) 30 Anion Gap (5 - 16) 3 L BUN (7 - 17 mg/dL) 24 H Creatinine (0.5 - 1.0 mg/dL) 0.7 Estimated GFR (>60 ml/min) > 60 BUN/Creatinine Ratio (7 - 25 %) 34.3 H Magnesium (1.6 - 2.3 mg/dL) 1.9 Vital Signs Date Time Temp Pulse Resp B/P Pulse O2 O2 Flow FiO2 Ox Delivery Rate 01/16 0612 97.2 72 18 140/80 98 Room Air 01/15 2218 97.1 60 20 145/70 93 01/15 2117 76 146/78 01/15 1433 98.1 66 20 156/80 98 Room Air Intake & Output 01/16 1600 01/16 0800 01/16 0000 Intake Total 550 Output Total Balance 550 Intake, Oral 550 Number 1 Bowel Movements
--- NOTE | 2017-01-16 10:20 | NUR ---
NURSING NOTE: PT AWAKE, A/OX3 AT THIS TIME, FORGETFUL AT TIMES. BED ALARM IN PLACE. PT USING CALL LUNDY APPROPRIATELY. PSYCH FOLLOWING; SEE CONSULT FROM TODAY. AWAITING DAUGHTER JEANINE TO GET OUT OF [employer] FOR DISCHARGE HOME TO [facility] PER [place], [facility] PRICING CONSULTANT FOLLOWING, TO DC PATIENT SAFETY MONITOR.
[2017-01-16 14:14] VITALS: BP 148/80
--- NOTE | 2017-01-16 14:39 | NUR ---
NURSING NOTE: PTS DAUGHTER AND SON HERE; STATING "SHES STILL PARANOID AND THATS WHY WE BROUGHT HER IN" AFTER PT FINISHED LUNCH AROUND 1300PM SHE DISCONNECTED HER PHONE LINE STATING "I THINK THERE ARE SPYS OUT THERE" PT REASSURED AND REORIENTED.NO ATTEMPTS OUT OF BED. 1425PM PT STATES "IM NOT A NORMAL 81 YEAR OLD IM NOT A FALL RISK, IM TAKING MY RED SOCKS OFF AND IM NOT SITTING IN THE BED WITH THAT ALARM BUZZING EVERY TIME I MOVE" PT STATES "I WANT TO BE DISCHARGED NOW DR ONOFRE TOLD ME THIS MORNING THAT WHEN MY DAUGHTER JEANINE GETS HERE I CAN LEAVE AND GO TO [facility]." PT GETTING DRESSED WITH RN SUPERVISION, JANUARY BUS BOY IN ROOM, PT WALKING OUT OF THE ROOM. STEADY GAIT NOTED; STAFF SUPERVSION. DR ONOFRE PAGED AND CAME UP TO SEE FAMILY. PT SITTING IN [facility]ANO ROOM, TRAZADONE GIVEN AT THIS TIME PER PRN ORDER. LUBNA FROM [facility] SPEAKING WITH FAMILY. CONT TO MONITOR
== END 2017-01-16 16:18 | DRG 644 ==
LOC: ERH 20:07 → DELPENDDIS 23:36 → ENPENDDIS 23:36 → 2NB 23:36 → ERHI 23:36 → 2NB 01-13 01:11
PROVIDERS: Emergency Medicine; ADMIT Internal Medicine
DX: E22.2 Syndrome of inappropriate secretion of antidiuretic hormone (principal); R44.3 Hallucinations, unspecified; F22 Delusional disorders; I10 Essential (primary) hypertension; R41.0 Disorientation, unspecified; E78.5 Hyperlipidemia, unspecified
CPT/HCPCS: 2NBP; 84133; 84300; ERO; 36415; 80307; 81001; 82436; 82570; 87086; 93005; 93010; 96360; 97110-GO; 97116-GO; 97161-GP; 97530-GO; 99232; G0480; J1650

== ENCOUNTER 2017-03-21 23:35 | Emergency (ER) | payer OTHER, MEDICARE ==
[~2017-03-21] VITALS: Ht 157.5 cm; Wt 59.0 kg
[~2017-03-21 23:35] MED LIST: AMLODIPINE BESYL5 M1 PO; ASPIRIN EC81 M1 PO; ATORVASTATIN CA20 M1 PO; CARVEDILOL6.25 M1 PO; LOSARTAN POTASS50 M1 PO; MELATONIN3 M4 PO; TRAZODONE HCL50 M1 PO
--- NOTE | 2017-03-21 23:59 | ED AMS/SEIZURE/WEAK/DIZZY ---
See Addendum History of Present Illness General Chief Complaint: Altered Mental Status Stated Complaint: ALTERED MENTAL STATUS Source: patient, family, EMS Exam Limitations: no limitations Vital Signs & Intake/Output Vital Signs & Intake/Output Vital Signs Date Time Temp Pulse Resp B/P B/P Pulse O2 O2 Flow FiO2 Mean Ox Delivery Rate 03/22 0216 97.0 55 20 159/78 98 Room Air 03/21 2337 97.0 75 20 184/81 96 Room Air ED Intake and Output 03/22 0000 03/21 1200 Intake Total Output Total Balance Patient 130 lb Weight Allergies Coded Allergies: Penicillins (RASH 01/12/17) Reconcile Medications Amlodipine Besylate 5 MG TABLET 0.5 TAB PO DAILY HEART/BP (Reported) Aspirin (Ecotrin*) 81 MG TABLET.DR 81 MG PO DAILY HEART/BLOOD (Reported) Atorvastatin Calcium 20 MG TABLET 1 TAB PO DAILY CHOLESTEROL (Reported) Carvedilol 6.25 MG TABLET 1 TAB PO BID HEART/BP (Reported) Melatonin 3 MG TABLET 1 TAB PO QPM SLEEP Trazodone HCl 50 MG TABLET 0.5 TAB PO Q8 PRN PRN ANXIETY AND AGITATION Triage Note: PT SWATI, SON CALLED 911 AFTER PT WAS HALLUCINATING/ HAVE DELUSIONS. PER PT SON PT WAS HAVING PARANOID THOUGHTS AND WAS SEEING THINGS THAT WERE NOT THERE. PT ARRIVES ALERT AND ORIENTED. AT BEDSIDE Triage Nurses Notes Reviewed? yes Onset: Gradual Duration: waxing and waning Timing: recent history Injury Environment: home Severity: mild Modifying Factors: Improves With: rest. Associated Symptoms: increased confusion and paranoia : No Patient currently breastfeeds: No HPI: 81 yo woman presents with decline in mental status. Per her son, "She has been slowly decompensating over the past several months... She couldn't live at home... We moved her into an apartment... Tonight, she was concerned that someone was watching her through the [employer]... Also, she was afraid that people across the street were watching her... She seems more paranoid." She states, "I am not mentally unbalanced.... I am able to take care of myself. " She denies paranoia, hallucinations, vs other. Past History Travel History Traveled to [place] past 21 day No Medical History Any Pertinent Medical History? see below for history Neurological: NONE EENT: NONE Cardiovascular: hypertension, hyperlipidemia Respiratory: NONE Gastrointestinal: NONE Hepatic: NONE Renal: NONE Musculoskeletal: osteoarthritis Psychiatric: NONE Endocrine: NONE Blood Disorders: NONE Cancer(s): NONE Other Medical Hx: left breast atypia History of MRSA: No History of VRE: No History of CDIFF: No Influenza Vaccine: 08/15/16 Surgical History Surgical History: none Psychosocial History Who do you live with Patient/Self Services at Home None What is your primary language Khmer Family History Family History, If Any: FATHER FH: bladder cancer MOTHER FH: heart disease Hx Contributory? No Review of Systems Review of Systems Constitutional: Reports: no symptoms. EENTM: Reports: no symptoms. Respiratory: Reports: no symptoms. Cardiovascular: Reports: no symptoms. GI: Reports: no symptoms. Genitourinary: Reports: no symptoms. Musculoskeletal: Reports: no symptoms. Skin: Reports: no symptoms. Neurological/Psychological: Reports: no symptoms. Hematologic/Endocrine: Reports: no symptoms. Immunologic/Allergic: Reports: no symptoms. All Other Systems: Reviewed and Negative Physical Exam Physical Exam General Appearance: well developed/nourished Head: atraumatic Eyes: Bilateral: normal appearance. Ears, Nose, Throat: normal pharynx, normal ENT inspection Neck: normal inspection, supple, full range of motion Respiratory: normal breath sounds, chest non-tender, no respiratory distress, quiet respiration Cardiovascular: regular rate/rhythm Gastrointestinal: normal bowel sounds, soft, non-tender, no organomegaly Back: normal inspection, normal range of motion Extremities: normal range of motion Neurologic/Psych: no motor/sensory deficits, awake, alert, oriented x 3 Skin: intact, normal color, warm/dry Core Measures ACS in differential dx? No CVA/TIA Diagnosis: No Severe Sepsis Present: No Septic Shock Present: No Progress Differential Diagnosis: benign positional vertigo, CVA/stroke, dehydration, electrolyte imbalance, UTI/pyelo, sundowning vs other. Plan of Care: Orders Procedure Date/time Status URINALYSIS 03/21 2359 Complete COMPREHENSIVE METABOLIC PANEL 03/21 2359 Complete CBC WITHOUT DIFFERENTIAL 03/21 2359 Complete EKG 03/21 2359 Active Laboratory Tests 03/22/17 0334: Urinalysis LIGHT H, Urine Color YEL, Urine Clarity CLEAR, Urine pH 6.0, Ur Specific [place] 1.015, Urine Protein NEG, Urine Ketones NEG, Urine Nitrite NEG, Urine Bilirubin NEG, Urine Urobilinogen 0.2, Ur Leukocyte Esterase TRACE H, Ur Microscopic SEDIMENT EXAMINED, Urine RBC 1-3, Urine WBC 1-3 H, Ur Epithelial Cells RARE, Urine Bacteria FEW H, Urine Hemoglobin NEG, Urine Glucose NEG 03/22/17 0025: Anion Gap 6, Estimated GFR > 60, BUN/Creatinine Ratio 31.7 H, Glucose 210 H, Calcium 9.1, Total Bilirubin 0.3, AST 21, ALT 33, Alkaline Phosphatase 54, Total Protein 5.4 L, Albumin 3.1 L, Globulin 2.3, Albumin/Globulin Ratio 1.3, CBC w Diff NO MAN DIFF REQ, RBC 4.30, MCV 84.6, MCH 28.3, RDW 13.5, MPV 8.6, Gran % 68.8, Lymphocytes % 20.3 L, Monocytes % 8.3, Eosinophils % 2.0, Basophils % 0.6 , Absolute Granulocytes 4.8, Absolute Lymphocytes 1.4, Absolute Monocytes 0.6, Absolute Eosinophils 0.1, Absolute Basophils 0, PUBS MCHC 33.4 Initial ED EKG: normal axis, normal intervals, normal p-waves, normal QRS complex, normal sinus rhythm Hand-Off Endorsed To: NEVILLE BROWN DO Departure Departure Disposition: STILL A PATIENT Condition: Stable Clinical Impression Primary Impression: Mental status change Secondary Impressions: Paranoia Referrals: DAMEON GARCIA,SHIRA Aviles (PCP/Family) Departure Forms: Customer Survey General Discharge Information Comments 03/22/17, 5:07am... discussed at length with patient... pt to be evaluated by crises and case management. 03/22/17, 7am. pt signed out to dr. brown
--- NOTE | 2017-03-22 00:38 | CT SCAN REPORT ---
EXAMINATION: CT HEAD WITHOUT CONTRAST CLINICAL INFORMATION: Mental status change. COMPARISON: 01/12/2017 TECHNIQUE: Contiguous axial imaging was performed from the skull base to vertex without intravenous contrast. DLP: 549 mGy-cm. FINDINGS: There is no evidence of acute intracranial hemorrhage or territorial infarction. No abnormal mass effect or midline shift is seen. Dempsey to white matter differentiation is well preserved. No extra-axial fluid collections are identified. No hydrocephalus. Similar appearance of cerebellar volume loss. Mild cerebral volume loss. Patchy periventricular and deep white matter hypoattenuation is consistent with mild small vessel ischemic changes. The osseous structures and soft tissues are normal. Partial opacification of the ethmoid air cells. The mastoid air cells and visualized portions of the paranasal sinuses are otherwise well aerated. IMPRESSION: No acute intracranial pathology. Stable appearance of areas of volume loss. Mild small vessel ischemic changes.
[2017-03-22 00:44] LABS: ABSOLUTE BASOPHIL COUNT 0 /CUMM (0.0-0.2); ABSOLUTE EOSINOPHIL COUNT 0.1 /CUMM (0.0-0.7); ABSOLUTE GRANULOCYTE CT 4.8 /CUMM (1.4-6.5); ABSOLUTE LYMPH COUNT 1.4 /CUMM (1.2-3.4); ABSOLUTE MONOCYTE COUNT 0.6 /CUMM (0.10-0.60); BASOPHIL % 0.6 % (0.0-2.0); GRANULOCYTE % 68.8 % (42.2-75.2); HEMATOCRIT 36.4 % (37-47); MEAN CORPUSCULAR HGB 28.3 PG (27.0-31.0); MEAN CORPUSCULAR HGB CONC 33.4 G/DL (33.0-37.0); MEAN CORPUSCULAR VOLUME 84.6 FL (81.0-99.0); MEAN PLATELET VOLUME 8.6 FL (7.4-10.4); PLATELET COUNT 292 /CUMM (130-400); RBC DISTRIBUTION WIDTH 13.5 % (11.5-14.5)
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
[2017-03-22 16:36] VITALS: BP 152/82
== END 2017-03-22 17:55 ==
LOC: ERH 23:35
PROVIDERS: Pediatrics
DX: R41.82 Altered mental status, unspecified (principal); F22 Delusional disorders; I10 Essential (primary) hypertension
CPT/HCPCS: 81001; 93005; 93010; G0463; J1630